=== PATIENT | male | born 1955 | race Caucasian/White ===

== ENCOUNTER → 2016-11-29 | Outpatient (CLI) | payer BC ==
[2016-11-29 11:23] LABS: ABSOLUTE EOSINOPHILS # (AUTO) 0.3 10^3/uL (0.0-0.6); ABSOLUTE MONOCYTES (AUTO) 0.4 10^3/uL (0.1-1.4); ABSOLUTE NEUT (AUTO) 3.3 10^3/uL (1.7-8.2); BASOPHILS % (AUTO) 0.7 % (0-2); EOSINOPHILS % (AUTO) 5.6 % (0-6); HEMATOCRIT 38.7 % (37.9-51.0); HEMOGLOBIN 12.5 g/dL (13.5-17.0); HGB HCT DIFFERENCE -1.2; LYMPHOCYTES % (AUTO) 20.1 % (13-45); MEAN CORPUSCULAR HEMOGLOBIN 24.4 pg (27.0-33.4); MEAN CORPUSCULAR HGB CONC 32.4 g/dL (32.0-36.0); MEAN CORPUSCULAR VOLUME 76 fl (80-97); MONOCYTES % (AUTO) 8.6 % (3-13); RED BLOOD COUNT 5.12 10^6/uL (4.35-5.55); RED CELL DISTRIBUTION WIDTH 17.7 % (11.5-14.0); WHITE BLOOD COUNT 5.1 10^3/uL (4.0-10.5)
== END ==
LOC: OD 10:42
PROVIDERS: ATTEND Internal Medicine
DX: J06.9 Acute upper respiratory infection, unspecified (principal); J32.9 Chronic sinusitis, unspecified
CPT/HCPCS: 36415; 71020; 85025

== ENCOUNTER → 2016-11-29 | Outpatient (CLI) | payer BC ==
[2016-11-29 10:06] LABS: ALANINE AMINOTRANSFERASE 71 U/L (21-72); ALKALINE PHOSPHATASE 74 U/L (38-126); ANION GAP 10 (5-19); ASPARTATE AMINO TRANSFERASE 45 U/L (17-59); BILIRUBIN,TOTAL 0.8 mg/dL (0.2-1.3); BLOOD UREA NITROGEN 16 mg/dL (7-20); CALCIUM 9.6 mg/dL (8.4-10.2); CARBON DIOXIDE 32 mmol/L (22-30); CHLORIDE 96 mmol/L (98-107); CHOLESTEROL 119.21 mg/dL (0-200); CREATININE RESULT 0.74 mg/dL (0.52-1.25); Direct HDL 43 mg/dL (>40); GLUCOSE 96 mg/dL (75-110); POTASSIUM 4.4 mmol/L (3.6-5.0); SODIUM 137.8 mmol/L (137-145); TOTAL PROTEIN 7.1 g/dL (6.3-8.2); TRIGLYCERIDES 131 mg/dL (<150)
[2016-11-29 10:17] LABS: DIRECT LDL 64 mg/dL (<100)
== END ==
LOC: OD 08:52
PROVIDERS: ATTEND Internal Medicine
DX: I48.2 Chronic atrial fibrillation (principal); E78.4 Other hyperlipidemia; I10 Essential (primary) hypertension; R01.1 Cardiac murmur, unspecified; M15.9 Polyosteoarthritis, unspecified; Z79.899 Other long term (current) drug therapy
CPT/HCPCS: 36415; 80053; 80061

== ENCOUNTER 2017-05-26 08:36 | Emergency (ER) | payer BC ==
[2017-05-26] MEDS ORDERED: NORMAL SALINE 1000 ML 1,000 ML IV ONE (08:59)
[2017-05-26 09:38] LABS: ABSOLUTE EOSINOPHILS # (AUTO) 0.3 10^3/uL (0.0-0.6); ABSOLUTE LYMPHOCYTES (AUTO) 1.1 10^3/uL (0.5-4.7); ABSOLUTE MONOCYTES (AUTO) 0.5 10^3/uL (0.1-1.4); ABSOLUTE NEUT (AUTO) 4.4 10^3/uL (1.7-8.2); BASOPHILS % (AUTO) 0.6 % (0-2); EOSINOPHILS % (AUTO) 4.7 % (0-6); HEMATOCRIT 41.5 % (37.9-51.0); HEMOGLOBIN 13.7 g/dL (13.5-17.0); HGB HCT DIFFERENCE -0.4; LYMPHOCYTES % (AUTO) 17.3 % (13-45); MEAN CORPUSCULAR HEMOGLOBIN 25.5 pg (27.0-33.4); MEAN CORPUSCULAR VOLUME 77 fl (80-97); MONOCYTES % (AUTO) 7.4 % (3-13); RED BLOOD COUNT 5.36 10^6/uL (4.35-5.55); RED CELL DISTRIBUTION WIDTH 19.7 % (11.5-14.0); WHITE BLOOD COUNT 6.3 10^3/uL (4.0-10.5)
[2017-05-26] MEDS ORDERED: KETOROLAC TROMETHAMINE INJ/PF 30 MG/1 ML SDV IV ONE (09:39)
[2017-05-26 09:48] LABS: APPEARANCE,URINE CLEAR; BILIRUBIN,URINE NEGATIVE (NEGATIVE); GLUCOSE, URINE NEGATIVE (NEGATIVE); KETONES,URINE NEGATIVE (NEGATIVE); LEUKOCYTE ESTERASE,URINE NEGATIVE (NEGATIVE); NITRITE,URINE NEGATIVE (NEGATIVE); PROTEIN,URINE NEGATIVE (NEGATIVE); URINE SPECIFIC GRAVITY 1.006; UROBILINOGEN,URINE NEGATIVE mg/dL (<2.0)
[2017-05-26 09:58] LABS: ALANINE AMINOTRANSFERASE 64 U/L (21-72); ALBUMIN 4.6 g/dL (3.5-5.0); ALKALINE PHOSPHATASE 65 U/L (38-126); ANION GAP 13 (5-19); ASPARTATE AMINO TRANSFERASE 51 U/L (17-59); BILIRUBIN,DIRECT 0.3 mg/dL (0.0-0.4); BILIRUBIN,TOTAL 1.1 mg/dL (0.2-1.3); BLOOD UREA NITROGEN 16 mg/dL (7-20); CALCIUM 9.5 mg/dL (8.4-10.2); CARBON DIOXIDE 28 mmol/L (22-30); CHLORIDE 95 mmol/L (98-107); CREATININE RESULT 0.71 mg/dL (0.52-1.25); GLUCOSE 98 mg/dL (75-110); POTASSIUM 4.1 mmol/L (3.6-5.0); SODIUM 136.4 mmol/L (137-145); TOTAL PROTEIN 7.7 g/dL (6.3-8.2)
--- NOTE | 2017-05-26 10:10 | RADIOLOGY REPORT (SQ) ---
EXAM DESCRIPTION: CHEST PA/LAT COMPLETED DATE/TIME: 05/26/2017 9:37 am REASON FOR STUDY: back, right side pain COMPARISON: CT chest 05/23/2012 Chest films 02/27/2008, 11/29/2016 EXAM PARAMETERS: NUMBER OF VIEWS: two views TECHNIQUE: Digital Frontal and Lateral radiographic views of the chest acquired. RADIATION DOSE: NA LIMITATIONS: none FINDINGS: LUNGS AND PLEURA: Benign pleural space fat is present similar compared to studies dating b ack to 2007. No acute infiltrates. No pleural effusion. No pneumothorax. MEDIASTINUM AND HILAR STRUCTURES: No masses or contour abnormalities. Benign calcified left hilar an d right hilar lymph nodes. HEART AND VASCULAR STRUCTURES: Heart normal size. No evidence for failure. BONES: No acute findings. HARDWARE: None in the chest. OTHER: No other significant finding. IMPRESSION: No acute findings TECHNICAL DOCUMENTATION: JOB ID: [id number] [employer]- All Rights Reserved
--- NOTE | 2017-05-26 10:16 | RADIOLOGY REPORT (SQ) ---
EXAM DESCRIPTION: CT LTD RENAL STONE PROTOCOL ON COMPLETED DATE/TIME: 05/26/2017 9:48 am REASON FOR STUDY: back, right side pain COMPARISON: Right upper quadrant ultrasound 07/06/2010 CT chest 05/23/2012 TECHNIQUE: CT scan of the abdomen and pelvis performed without intravenous or oral contrast. Images reviewed with lung, soft tissue, and bone windows. Reconstructed coronal and sagittal MPR images revi ewed. All images stored on PACS. All CT scanners at this facility use dose modulation, iterative reconstruction, and/or weight based d osing when appropriate to reduce radiation dose to as low as reasonably achievable (ALARA). [facility]: Dose Right [facility]: CareDose [facility]: Dose Right [facility]: Teradose 4D [facility]: [employer] RADIATION DOSE: Up-to-date CT equipment and radiation dose reduction techniques were employed. CTDIv ol: 26.4 mGy. DLP: 1404 mGy-cm.mGy. LIMITATIONS: None. FINDINGS: LOWER CHEST: Benign appearing noncalcified granulomas in the right lower lobe, unchanged f rom 2011. NON-CONTRASTED LIVER, SPLEEN, ADRENALS: Evaluation limited by lack of IV contrast. No identified sign ificant masses. Incidental finding of tiny subcentimeter cyst right lobe liver subdiaphragmatic surf cydney anteriorly, of doubtful significance PANCREAS: No masses. No peripancreatic inflammatory changes. GALLBLADDER: No identified stones by CT criteria. No inflammatory changes to suggest cholecystitis. RIGHT KIDNEY AND URETER: No suspicious masses. Assessment limited by lack of IV contrast. No signif icant calcifications. No hydronephrosis or hydroureter. LEFT KIDNEY AND URETER: No suspicious masses. Assessment limited by lack of IV contrast. No signifi cant calcifications. No hydronephrosis or hydroureter. AORTA AND RETROPERITONEUM: No aneurysm. No retroperitoneal masses or adenopathy. BOWEL AND PERITONEAL CAVITY: No obvious masses or inflammatory changes. No free fluid. APPENDIX: Normal. PELVIS, BLADDER, AND ABDOMINAL WALL:No abnormal masses. No free fluid. Bladder normal. Tiny fat cont aining umbilical hernia on sagittal image 62 and axial image 56 BONES: No significant findings. OTHER: No other significant finding. IMPRESSION: NO SIGNIFICANT OR ACUTE PROCESS IN THE ABDOMEN OR PELVIS. TECHNICAL DOCUMENTATION: JOB ID: [id number] Quality ID # [id number]: Final reports with documentation of one or more dose reduction techniques (e.g., Au tomated exposure control, adjustment of the mA and/or kV according to patient size, use of iterative reconstruction technique) 2010 [employer]- All Rights Reserved
--- NOTE | 2017-05-26 10:24 | ER Document Report ---
ED General - General Chief Complaint: Flank Pain Stated Complaint: RIGHT FLANK PAIN Time Seen by Provider: 05/26/17 08:58 Mode of Arrival: Ambulatory Information source: Patient Notes: 2 presents emergency department with complaints of right-sided back pain possible kidney stone. Patient reports that yesterday approximately 1500 he developed stabbing pain to the right side of his lower/mid back. Denies trauma , injury. Reports he did not do heavy lifting. He reports it hurt all night. He took one of his wifes percocet yesterday and it helped his pain but it kept him up all night. He reports it was an old prescription and none left. He took a tramadol at night and that did not help decrease the pain. He reports the pain increases when he moves certain ways. Denies shortness of breath chest pain. Area tender to palpate. Reports he had decreased urination for a while. Denies fever vomiting diarrhea. TRAVEL OUTSIDE OF THE [place] IN LAST 30 DAYS: No - HPI Onset: Yesterday Onset/Duration: Sudden, Persistent Severity: Severe Pain Level: 4 Associated symptoms: None Exacerbated by: Movement Relieved by: Denies Similar symptoms previously: No Recently seen / treated by doctor: No - Related Data Allergies/Adverse Reactions: No Known Allergies Allergy (Verified 05/26/17 09:55) Home Medications: Current Home Medications Apixaban [Eliquis] 5 mg PO BID 05/26/17 [History] Diltiazem HCl [Cartia Xt] 240 mg PO DAILY 05/26/17 [History] Hydrochlorothiazide [Hydrochlorothiazide] 50 mg PO DAILY 05/26/17 [History] Losartan Potassium [Losartan Potassium] 50 mg PO DAILY 05/26/17 [History] Omeprazole [Omeprazole] 40 mg PO DAILY 05/26/17 [History] Simvastatin [Simvastatin] 20 mg PO DAILY 05/26/17 [History] Tamsulosin HCl [Flomax] 0.4 mg PO DAILY 05/26/17 [History] Tramadol HCl/Acetaminophen [Tramadol-Acetaminophn 37.5-325] 1 each PO TID [History] Zolpidem Tartrate 10 mg PO QHS 05/26/17 [History] Past Medical History - General Information source: Patient - Social History Smoking Status: Never Smoker Chew tobacco use (# tins/day): No Frequency of alcohol use: None Drug Abuse: None Lives with: Family Family History: CAD - father Patient has suicidal ideation: No Patient has homicidal ideation: No - Past Medical History Cardiac Medical History: Reports: Hx Atrial Fibrillation, Hx Hypercholesterolemia, Hx Hypertension Renal/ Medical History: Denies: Hx Peritoneal Dialysis Surgical Hx: Negative - Immunizations Hx Diphtheria, Pertussis, Tetanus Vaccination: No Review of Systems - Review of Systems Notes: Review HPI for review of systems., All other systems negative Physical Exam - Vital signs Vitals: Temp Pulse Resp BP Pulse Ox 98.5 F 79 20 153/82 H 97 05/26/17 08:46 05/26/17 08:46 05/26/17 08:46 05/26/17 08:46 05/26/17 08:46 - Notes Notes: PHYSICAL EXAMINATION: GENERAL: Well-appearing and in no acute distress HEAD: Atraumatic, normocephalic. EYES: Pupils equal round extraocular movements intact, sclera anicteric, conjunctiva are normal. ENT: nares patent, oropharynx clear without exudates. Moist mucous membranes. NECK: Normal range of motion, supple without lymphadenopathy LUNGS: CTAB and equal. No wheezes rales or rhonchi. HEART: Regular rate and rhythm without murmurs Back: no erythema/warmth/swelling, good distal movement and sensation, reports slightly ttp on right mid back ABDOMEN: Soft, no tenderness. No guarding, no rebound EXTREMITIES: Normal range of motion, no pitting edema. No cyanosis. NEUROLOGICAL: Cranial nerves grossly intact. PSYCH: Normal mood, normal affect. SKIN: Warm, Dry, normal turgor, no open wounds Course - Re-evaluation Re-evalutation: 05/26/17 10:49 Labs unremarkable no hematuria Reports pain gone. Patient instructed on all labs CT and chest x-ray. He was instructed to return for any worsening pain trouble breathing. He was also instructed to follow-up with Leonor Rendon MD on Sunday. Patient requesting pain medication until he can see his provider. - Vital Signs Vital signs: Temp Pulse Resp BP Pulse Ox 98 F 62 16 127/75 H 96 05/26/17 10:40 05/26/17 10:40 05/26/17 10:40 05/26/17 10:40 05/26/17 10:40 - Laboratory Result Diagrams: 05/26/17 09:10 05/26/17 09:10 Laboratory results interpreted by me: 05/26/17 05/26/17 09:10 09:10 MCV 77 L MCH 25.5 L RDW 19.7 H Sodium 136.4 L Chloride 95 L - Diagnostic Test Radiology reviewed: Image reviewed, Reports reviewed - Negative CT and chest x- ray Discharge - Discharge Clinical Impression: Right-sided back pain Qualifiers: Back pain location: low back pain Chronicity: acute Sciatica presence: without sciatica Qualified Code(s): M54.5 - Low back pain Condition: Stable Disposition: HOME, SELF-CARE Instructions: Low Back Pain ([facility]), Toradol Injection ([facility]), Oral Narcotic Medication ([facility]) Additional Instructions: *You have been evaluated for right sided back pain *Take your pain medication as prescribed *Rest/Ice- heat as directed *Follow up with Dr Peraza on Sunday *Return to ED for worsening condition, changes, needs, increased pain, difficulty breathing Prescriptions: Oxycodone HCl/Acetaminophen [Percocet 5-325 mg Tablet] 1 tab PO ASDIR PRN #5 tablet PRN Reason: Referrals: LEONOR RENDON MD [Primary Care Provider] - Follow up in 3-5 days
[2017-05-26 10:41] VITALS: BP 127/75
== END 2017-05-26 10:55 | disposition home or self-care (01) ==
LOC: ER 08:36
DX: M54.5 Low back pain (principal); R10.9 Unspecified abdominal pain; M54.9 Dorsalgia, unspecified; R33.9 Retention of urine, unspecified; Z79.899 Other long term (current) drug therapy; X50.0XXA Overexertion from strenuous movement or load, initial encounter
CPT/HCPCS: 99284; 96374; 36415; 85025; 80053; 81001; 71020; 76380; J1885

== ENCOUNTER 2018-04-25 07:07 | Day surgery (SDC) | payer BC ==
[~2018-04-25 07:07] MED LIST: KETOROLAC TROMETHAMINE 0.45% 4 DROP/0.4 ML DROPERETTE OS PRN
[2018-04-25] MEDS ORDERED: MIDAZOLAM 2 MG/2 ML INJ ONE ×2 (07:14→08:29)
[2018-04-25] MEDS ORDERED: EPINEPHRINE INJ/PF 1 MG/1 ML AMPULE ONE (07:42)
[2018-04-25] MEDS ORDERED: CHONDR SU A NA/HYALUR INTRAOC KIT (SURGICARE) ONE (07:42)
[2018-04-25] MEDS ORDERED: LIDOCAINE 1% INJ-PF (10 MG/ML) 30 ML SDV ONE (07:42)
[2018-04-25] MEDS: CYCLOPENTOLATE 0.2%/PHENYLEPHRINE 1% OPH SOLN 2 ML OS PRN ×3 (07:47→08:03)
[2018-04-25] MEDS: TETRACAINE HCL 0.5% OPH SOLN 2 ML OS PRN ×3 (07:47→08:24)
[2018-04-25] MEDS: TROPICAMIDE 1% OPH SOLN 3 ML OS PRN ×3 (07:47→08:03)
[2018-04-25] MEDS: BESIFLOXACIN HCL 0.6% OPH SUSP 5 ML BOTTLE OS PRN ×4 (07:47→08:49)
[2018-04-25] MEDS ORDERED: LIDOCAINE 1%/PHENYLEPHRINE 1.5% 1 ML VIAL ONE (07:55)
[2018-04-25] MEDS ORDERED: TRYPAN BLUE 0.06 % OPH SOLN 0.5 ML DISP.SYRIN ONE (07:57)
--- NOTE | 2018-04-25 16:30 | [facility] OPERATIVE REPORT E ---
[facility] Operative Report NAME: LEONEL SCHULTZ AGE: 62Y DATE OF SURGERY: 04/25/2018 ROOM: PREOPERATIVE DIAGNOSES: 1. CATARACT LEFT EYE. 2. PUPIL MIOSIS, LEFT EYE. POSTOPERATIVE DIAGNOSES: 1. CATARACT LEFT EYE. 2. PUPIL MIOSIS, LEFT EYE. OPERATION: Complex cataract extraction with the use of a Malyugin ring due to poor pupillary dilation. SURGEON: GUANAKO GOLDMAN M.D. ANESTHESIA: TOPICAL. COMPLICATIONS: None. ESTIMATED BLOOD LOSS: None. PROCEDURE: After obtaining appropriate consent, the patient left eye was prepped and draped in sterile fashion as well as the surgeon in a sterile manner, and the cataract surgery was started. First, the paracentesis blade was used to make a small side-port incision. Viscoelastic was used to inflate the anterior chamber. Next a 2.4 mm incision was made using a 2.4 mm keratome. At this point, the pupil was less than 4.5 mm and was very miotic. A Malyugin ring was inserted due to a pupillary dilation of 3.0 mm or myosis. Following this, a continuous capsulorhexis was made using a cystitome and Utrata forceps. Following this, hydrodissection was carried out to make the lens fully loose and mobile, and it was rotated 90 degrees. Following this, a divide and conquer technique was used to phacoemulsify the lens with a CDE of approximately 5.99. The remaining cortex was removed with irrigation/aspiration. Provisc was instilled into the capsular bag to inflate the bag. A SN60WF lens of 22.5 diopters was placed. The remaining viscoelastic material was removed with irrigation/aspiration. After this the Malyugin ring was removed. Following this, the incision was found to be watertight. Besivance was instilled into the eye and a protective shield was placed over the eye. The patient returned to the postoperative recovery in stable condition. This was a complex case due to the fact that the Malyugin ring was used due to poor pupillary dilation of less than or equal to 4 mm. DICTATING PHYSICIAN: GUANAKO GOLDMAN M.D. [id number] PHY#: [id number] ID: [id number] JOB#: [id number] ACCT: [id number] cc:GUANAKO GOLDMAN M.D. >
--- NOTE | 2018-04-25 16:37 | [facility] DISCHARGE SUMMARY E ---
[facility] Discharge Summary NAME: LEONEL SCHULTZ AGE: 62Y ADMITTED: 04/25/2018 DISCHARGED: HOSPITAL COURSE: This is a 62-year-old male for complex cataract extraction with Malyugin ring. DIAGNOSIS: 1. CATARACT left EYE. 2. PUPIL MYOSIS 3.5 mm. The patient underwent surgery because he had trouble seeing road signs and increasing glare from headlights. DISCHARGE INSTRUCTIONS: He should be on a regular diet. No bending at the waist, no heavy lifting. He should use his Besivance, Ilevro, and Durezol at 3:00 p.m. and 8:00 p.m. and sleep with a rigid shield. I will see him for 1-day postoperative tomorrow. DICTATING PHYSICIAN: GUANAKO GOLDMAN M.D. [id number] PHY#: [id number] ID: [id number] JOB#: [id number] ACCT: [id number] cc:GUANAKO GOLDMAN M.D. > MTDD
== END 2018-04-25 09:30 | disposition home or self-care (01) ==
LOC: SC 07:07
PROVIDERS: ATTEND Internal Medicine
DX: H57.03 Miosis (principal); H25.13 Age-related nuclear cataract, bilateral; I49.9 Cardiac arrhythmia, unspecified; I10 Essential (primary) hypertension; K21.9 Gastro-esophageal reflux disease without esophagitis; E66.9 Obesity, unspecified; Z68.39 Body mass index [BMI] 39.0-39.9, adult; Z79.01 Long term (current) use of anticoagulants
CPT/HCPCS: 66982; V2632; J2250; J3490; J0171; J2370; 142

== ENCOUNTER → 2018-07-25 | Outpatient (CLI) | payer BC ==
[2018-07-25 10:06] LABS: ABSOLUTE EOSINOPHILS # (AUTO) 0.2 10^3/uL (0.0-0.6); ABSOLUTE LYMPHOCYTES (AUTO) 0.7 10^3/uL (0.5-4.7); ABSOLUTE MONOCYTES (AUTO) 0.4 10^3/uL (0.1-1.4); ABSOLUTE NEUT (AUTO) 3.4 10^3/uL (1.7-8.2); BASOPHILS % (AUTO) 0.6 % (0-2); EOSINOPHILS % (AUTO) 4.1 % (0-6); HEMOGLOBIN 11.6 g/dL (13.5-17.0); LYMPHOCYTES % (AUTO) 15.5 % (13-45); MEAN CORPUSCULAR HEMOGLOBIN 22.8 pg (27.0-33.4); MEAN CORPUSCULAR HGB CONC 32.3 g/dL (32.0-36.0); MEAN CORPUSCULAR VOLUME 70 fl (80-97); MONOCYTES % (AUTO) 9.2 % (3-13); PLATELET COUNT 250 10^3/uL (150-450); RED BLOOD COUNT 5.12 10^6/uL (4.35-5.55); RED CELL DISTRIBUTION WIDTH 20.4 % (11.5-14.0); SEGMENTED NEUTROPHILS % (AUTO) 70.6 % (42-78); TOTAL CELLS COUNTED % (AUTO) 100 %; WHITE BLOOD COUNT 4.8 10^3/uL (4.0-10.5)
[2018-07-25 10:28] LABS: ALANINE AMINOTRANSFERASE 49 U/L (21-72); ALKALINE PHOSPHATASE 64 U/L (38-126); ANION GAP 11 (5-19); ASPARTATE AMINO TRANSFERASE 30 U/L (17-59); BILIRUBIN,DIRECT 0.2 mg/dL (0.0-0.4); BILIRUBIN,TOTAL 0.8 mg/dL (0.2-1.3); BLOOD UREA NITROGEN 9 mg/dL (7-20); CALCIUM 9.3 mg/dL (8.4-10.2); CARBON DIOXIDE 30 mmol/L (22-30); CHLORIDE 93 mmol/L (98-107); CHOLESTEROL 118.48 mg/dL (0-200); GLUCOSE 94 mg/dL (75-110); POTASSIUM 4.2 mmol/L (3.6-5.0); SODIUM 133.6 mmol/L (137-145); TOTAL PROTEIN 6.6 g/dL (6.3-8.2); TRIGLYCERIDES 132 mg/dL (<150)
[2018-07-25 10:38] LABS: DIRECT LDL 54 mg/dL (<100)
== END ==
LOC: OD 09:05
PROVIDERS: ATTEND Internal Medicine
DX: I48.0 Paroxysmal atrial fibrillation (principal); J44.9 Chronic obstructive pulmonary disease, unspecified; I10 Essential (primary) hypertension; E78.5 Hyperlipidemia, unspecified; G47.33 Obstructive sleep apnea (adult) (pediatric); R35.1 Nocturia; R53.83 Other fatigue
CPT/HCPCS: 36415; 80053; 80061; 84153; 84443; 85025

== ENCOUNTER → 2019-01-31 | Outpatient (CLI) | payer BC | LOC: OD 13:18 | PROVIDERS: ATTEND Physician Assistant | DX: R60.0 Localized edema (principal); R06.02 Shortness of breath | CPT/HCPCS: 36415; 83880 ==

== ENCOUNTER → 2019-02-12 | Outpatient (CLI) | payer BC ==
[~2019-02-12] MED LIST changes: -KETOROLAC TROMETHAMINE 0.45% 4 DROP/0.4 ML DROPERETTE OS PRN; +REGADENOSON INJ 0.4 MG/5 ML DISP.SYRIN IV ONE
--- NOTE | 2019-02-12 08:40 | RADIOLOGY REPORT (SQ) ---
EXAM DESCRIPTION: CHEST 2 VIEWS COMPLETED DATE/TIME: 02/12/2019 8:24 am REASON FOR STUDY: SOB (R06.02), COUGH (R05) COMPARISON: 05/26/2017 EXAM PARAMETERS: NUMBER OF VIEWS: two views TECHNIQUE: Digital Frontal and Lateral radiographic views of the chest acquired. RADIATION DOSE: NA LIMITATIONS: none FINDINGS: LUNGS AND PLEURA: Minimal chronic linear density left base. Lungs otherwise clear. MEDIASTINUM AND HILAR STRUCTURES: No masses or contour abnormalities. HEART AND VASCULAR STRUCTURES: Borderline cardiomegaly BONES: No acute findings. HARDWARE: None in the chest. OTHER: No other significant finding. IMPRESSION: NO ACUTE RADIOGRAPHIC FINDING IN THE CHEST. TECHNICAL DOCUMENTATION: JOB ID: [id number] [employer]- All Rights Reserved Reading location - IP/workstation name: [email or web address]
[2019-02-12 08:56] LABS: ABSOLUTE EOSINOPHILS # (AUTO) 0.1 10^3/uL (0.0-0.6); ABSOLUTE MONOCYTES (AUTO) 0.5 10^3/uL (0.1-1.4); ABSOLUTE NEUT (AUTO) 4.4 10^3/uL (1.7-8.2); BASOPHILS % (AUTO) 0.5 % (0-2); EOSINOPHILS % (AUTO) 1.2 % (0-6); HEMATOCRIT 34.8 % (37.9-51.0); LYMPHOCYTES % (AUTO) 16.4 % (13-45); MEAN CORPUSCULAR HEMOGLOBIN 22.7 pg (27.0-33.4); MEAN CORPUSCULAR HGB CONC 31.5 g/dL (32.0-36.0); MEAN CORPUSCULAR VOLUME 72 fl (80-97); MONOCYTES % (AUTO) 7.8 % (3-13); PLATELET COUNT 247 10^3/uL (150-450); RED BLOOD COUNT 4.84 10^6/uL (4.35-5.55); RED CELL DISTRIBUTION WIDTH 21.5 % (11.5-14.0); SEGMENTED NEUTROPHILS % (AUTO) 74.1 % (42-78); TOTAL CELLS COUNTED % (AUTO) 100 %; WHITE BLOOD COUNT 5.9 10^3/uL (4.0-10.5)
[2019-02-12 09:21] LABS: ALANINE AMINOTRANSFERASE 51 U/L (21-72); ALBUMIN 3.6 g/dL (3.5-5.0); ALKALINE PHOSPHATASE 73 U/L (38-126); ANION GAP 5 (5-19); ASPARTATE AMINO TRANSFERASE 29 U/L (17-59); BILIRUBIN,DIRECT 0.2 mg/dL (0.0-0.4); BILIRUBIN,TOTAL 0.6 mg/dL (0.2-1.3); BLOOD UREA NITROGEN 19 mg/dL (7-20); CALCIUM 9.2 mg/dL (8.4-10.2); CARBON DIOXIDE 30 mmol/L (22-30); CHLORIDE 101 mmol/L (98-107); CHOLESTEROL 135.86 mg/dL (0-200); GLUCOSE 98 mg/dL (75-110); SODIUM 135.9 mmol/L (137-145); TOTAL PROTEIN 6.2 g/dL (6.3-8.2); TRIGLYCERIDES 169 mg/dL (<150)
[2019-02-12 09:32] LABS: DIRECT LDL 79 mg/dL (<100)
[2019-02-12 09:36] LABS: VLDL CHOLESTEROL 33.8 mg/dL (10-31)
--- NOTE | 2019-02-13 22:50 | DRAGON STRESS TEST REPORT ---
Intravenous Lexiscan Cardiolite stress test using single photon emmision computerized tomography. Date of procedure: 02/12/2019.Ordering Provider: Dr. Kishan Massey.. Patient's status:Out Patient. Indication: Dyspnea on exertion. Coronary risk factors: Age, and hypertension. Resting EKG: Sinus Rhythm. LVH with strain pattern Stress EKG: No changes of ischemia. The patient has no chest pain or discomfort, and there was no arrhythmias seen. Reason for termination: Protocol. Conclusions: Normal EKG and hemodynamic response to IV Lexiscan. Nuclear data: At rest the patient was given 15.24 millicuries of technetium 99m sestamibi injected intravenously. As per protocol rest non gated SPECT images were obtained. Subsequently the patient was given intravenous Lexiscan at a dose of 0.4 mg in 5 mL intravenously, followed by flush with normal saline. Subsequently the stress dose of 47.3 millicuries of technetium 99m sestamibi was injected intravenously. As per protocol stress gated images were obtained. Nuclear interpretation: Review of images showed that there was bowel contamination artifact of the inferior wall. Difficult study to interpret. Probably there is a perfusion defect in the stress images which normalizes in the rest images. This area has normal motion contraction and thickening by gated. The rest of the segments of the myocardium had normal perfusion at rest, and normal perfusion post stress with IV Lexiscan. All segments of the myocardium had normal motion, contraction, and thickening by gated study. T. I D. ratio was normal at 1.13. There is no transient ischemic dilatation of the left ventricle. Computer read rest, and stress left ventricular ejection fraction were 44 %, and 87 %, respectively. Visually both the stress and rest ejection fractions were normal, and greater than 55%. Conclusion: 1. There is probably mild to moderate scintigraphic evidence of Lexiscan induced myocardial ischemia. 2. There is no scintigraphic evidence of myocardial infarction/scar. Recommendations: 1. Cardiac catheterization to assess significance of coronary artery disease. 2. Check echo for LV ejection fraction correlation. 3. Aggressive risk factor modification, and treating the underlying co- morbidities. [facility]
== END ==
LOC: RAD 07:56
PROVIDERS: ATTEND Internal Medicine
DX: R06.02 Shortness of breath (principal); R05 Cough; E78.5 Hyperlipidemia, unspecified; I10 Essential (primary) hypertension; R73.9 Hyperglycemia, unspecified; I48.91 Unspecified atrial fibrillation; R53.83 Other fatigue; Z79.899 Other long term (current) drug therapy
CPT/HCPCS: 36415; 83735; 84443; 85025; 80053; 83036; 80061; 93017; 71046; 78452; A9500; J2785; Q9969

== ENCOUNTER 2019-02-25 07:55 | Day surgery (SDC) | payer BC ==
[~2019-02-25 07:55] MED LIST changes: +ASPIRIN 325 MG TABLET PO PRN; +DIAZEPAM 5 MG TABLET PO PRN; +DIPHENHYDRAMINE HCL 25 MG CAPSULE PO PRN; +RADIAL COCKTAIL SYRINGE 10 ML IV PRN; -REGADENOSON INJ 0.4 MG/5 ML DISP.SYRIN IV ONE
[2019-02-25] MEDS ORDERED: MIDAZOLAM 2 MG/2 ML INJ ONE (09:14)
[2019-02-25] MEDS ORDERED: FENTANYL CITRATE INJ/PF 100 MCG/2 ML AMPUL ONE (09:14)
[2019-02-25] MEDS ORDERED: HEPARIN SOD (PORCINE) 1,000 UNIT/ML 10 ML VIAL ONE (09:14)
[2019-02-25] MEDS ORDERED: LIDOCAINE 1% INJ-PF (10 MG/ML) 30 ML SDV ONE (09:15)
[2019-02-25] MEDS ORDERED: HEPARIN SODIUM,PORCINE/NS/PF 2,000 UNIT/1,000 ML RTUINJ IV ONE (09:16)
[2019-02-25] MEDS ORDERED: NORMAL SALINE 1000 ML 1,000 ML IV PRN (10:14)
--- NOTE | 2019-02-25 10:20 | Operative Report ---
Operative Report DATE OF SURGERY: 02/25/19 PREOPERATIVE DIAGNOSIS: Abnormal stress test chest pain syndrome POSTOPERATIVE DIAGNOSIS: Hypertrophic cardiomyopathy spade variant OPERATION: Left heart catheterization coronary angiography left ventriculography SURGEON: DMITRI MCFADDEN ANESTHESIA: Moderate Sedation COMPLICATIONS: None PROCEDURE: After informed consent was obtained the patient was brought to the cardiac catheterization lab and the right wrist was prepared in usual sterile and draped manner. Hemodynamic access was gained using micropuncture technique and the patient was anticoagulated with heparin. An intra-arterial cocktail of verapamil and lidocaine was administered. Selective coronary angiography was performed with a [place] catheter. This was exchanged with pigtail catheter and left ventriculography was performed in standard RICE projection. The patient left the Cardiac Catheterization Lab in stable condition, with intact distal pulses and no chest pain or other complications from the procedure. Conscious sedation was initiated, monitored, and maintained during the procedure with the start time of [941] and a completion time of 1002 for a total procedure time of 21 minutes. A total of 1 mg milligrams of Versed and 75 mcg fentanyl were used for conscious sedation. HEMODYNAMIC DATA: Aortic pressure at the beginning the case is 125/72 post ventriculography LV pressure is 148/20 4 aortic pressure is 151/82 on pullback there is no gradient across the aortic valve and no LVOT gradient CORONARY ANATOMY: [] ANGIOGRAPHY: [] VENTRICULOGRAPHY: Ventriculography is performed in the RICE projection and demonstrates [a speed configuration ventricle with apical hypertrophy consistent with an apical hypertrophic cardiomyopathy variant regional wall motion is normal ejection fraction is calculated at 83% by area length method] . CORONARY ANGIOGRAPHY: [] LEFT MAIN: [Normal] LEFT ANTERIOR DESCENDING: [A transapical LAD with diagonal vessels that are widely patent there are minor luminal irregularities but no critical or focal obstructions] CIRCUMFLEX CORONARY: [Supplies the lateral wall this artery is also normally epicardial extent] RIGHT CORONARY ARTERY: Dominant supplying the PDA and posterolateral branches this is also normal IMPRESSION: [ 1. Hypertrophic cardiomyopathy with apical variant 2. Essentially normal epicardial coronary arteries 3. Elevated left ventricular end-diastolic pressure 4. No evidence of significant valvular heart disease Discussion: Recommendations at this time or for significant weight loss compliance with CPAP and continued medical therapy]
[2019-02-25 14:12] VITALS: BP 135/91
== END 2019-02-25 13:25 | disposition home or self-care (01) ==
LOC: CCL 07:55
PROVIDERS: ATTEND Internal Medicine Cardiovascular Disease
DX: I42.2 Other hypertrophic cardiomyopathy (principal); R07.9 Chest pain, unspecified; R06.00 Dyspnea, unspecified; I10 Essential (primary) hypertension; E78.5 Hyperlipidemia, unspecified
CPT/HCPCS: 93458; J2250; J3010; J1644 ×2; J3490 ×4

== ENCOUNTER → 2019-05-21 | Outpatient (CLI) | payer BC ==
[2019-05-21 10:01] LABS: ABSOLUTE EOSINOPHILS # (AUTO) 0.1 10^3/uL (0.0-0.6); ABSOLUTE LYMPHOCYTES (AUTO) 1.2 10^3/uL (0.5-4.7); ABSOLUTE MONOCYTES (AUTO) 0.5 10^3/uL (0.1-1.4); ABSOLUTE NEUT (AUTO) 4.2 10^3/uL (1.7-8.2); BASOPHILS % (AUTO) 0.5 % (0-2); EOSINOPHILS % (AUTO) 1.8 % (0-6); HEMATOCRIT 34.5 % (37.9-51.0); HEMOGLOBIN 10.6 g/dL (13.5-17.0); LYMPHOCYTES % (AUTO) 19.9 % (13-45); MEAN CORPUSCULAR HEMOGLOBIN 21.2 pg (27.0-33.4); MEAN CORPUSCULAR HGB CONC 30.9 g/dL (32.0-36.0); MEAN CORPUSCULAR VOLUME 69 fl (80-97); MONOCYTES % (AUTO) 8.2 % (3-13); PLATELET COUNT 246 10^3/uL (150-450); RED BLOOD COUNT 5.03 10^6/uL (4.35-5.55); RED CELL DISTRIBUTION WIDTH 19.2 % (11.5-14.0); SEGMENTED NEUTROPHILS % (AUTO) 69.6 % (42-78); TOTAL CELLS COUNTED % (AUTO) 100 %
[2019-05-21 10:22] LABS: ALANINE AMINOTRANSFERASE 57 U/L (21-72); ALBUMIN 3.9 g/dL (3.5-5.0); ALKALINE PHOSPHATASE 71 U/L (38-126); ANION GAP 7 (5-19); ASPARTATE AMINO TRANSFERASE 33 U/L (17-59); BILIRUBIN,DIRECT 0.2 mg/dL (0.0-0.4); BILIRUBIN,TOTAL 0.6 mg/dL (0.2-1.3); BLOOD UREA NITROGEN 14 mg/dL (7-20); CALCIUM 8.8 mg/dL (8.4-10.2); CARBON DIOXIDE 32 mmol/L (22-30); CHLORIDE 99 mmol/L (98-107); GLUCOSE 112 mg/dL (75-110); POTASSIUM 3.6 mmol/L (3.6-5.0); TOTAL PROTEIN 6.3 g/dL (6.3-8.2)
[2019-05-21 10:29] LABS: C-REACTIVE PROTEIN < 5.0 mg/L (<10.0)
[2019-05-21 10:36] LABS: ERYTHROCYTE SEDIMENTATION RATE 7 mm/hr (0-20)
== END ==
LOC: WC 09:23
PROVIDERS: ATTEND Nurse Practitioner Family
DX: L97.222 Non-pressure chronic ulcer of left calf with fat layer exposed (principal)
CPT/HCPCS: 11042; 36415; 80053; 85025; 85652; 86140; 99214

== ENCOUNTER → 2019-05-27 | Outpatient (CLI) | payer BC ==
--- NOTE | 2019-05-28 08:59 | XCELERA REPORT ---
[address] [address] Lower Extremity Arterial Evaluation Name: LEONEL SCHULTZ Age: 64 yrs Gender: Male : 1955 Patient Status: Outpatient Patient Location: Study Date: 05/27/2019 01:19 PM Procedure: A color flow and duplex scan of the lower extremity arteries was performed bilaterally with velocity and waveform anaylsis. Ankle brachial indicies performed. Reason For Study: LT CALF ULCER Ordering Physician: BULMARO FUNK Performed By: Edouard Villarreal Measurements and Calculations Right Left SEM MANAGER PSV 198.6 144.4 cm/sec Prox PFA PSV -145.8 -193.6cm/sec Prox SFA PSV 143.2 186.3 cm/sec Mid SFA PSV -160.6 -188.6cm/sec Dist SFA PSV -109.1 -89.3 cm/sec Prox Pop A PSV 103.4 113.1 cm/sec Mid ELIAN PSV 64.2 cm/sec Dist ELIAN PSV 98.7 cm/sec Mid SEED CLEANER PSV 93.7 cm/sec Dist SEED CLEANER PSV 125.0 131.3 cm/sec Eloy Pedis PSV 171.1 100.2 cm/sec Right Side Arterial Evaluation Normal velocity and triphasic waveforms noted from the Common Femoral artery to the infrageniculate vessels . Ankle Brachial index 1.08. Left Side Arterial Evaluation Normal velocity and triphasic waveforms noted from the Common Femoral artery to the infrageniculate vessels . Ankle Brachial index 1.15. Interpretation Summary No hemodynamically significant lesions in the bilateral lower extremities, on duplex imaging, at rest. Duplex completely normal. RAIMUNDO's are normal supporting duplex findings. : BULMARO FUNK > Corey Dee
--- NOTE | 2019-05-29 12:17 | XCELERA REPORT ---
[address] [address] Lower Extremity Venous Evaluation Procedure: A bilateral duplex scan of the lower extremity veins was performed. The evaluation included responses to compression and other maneuvers with patient in the supine and standing positions to assess venous insufficiency. Right Sided Venous Evaluation Deep venous system evaluation shows patent veins with no obstruction ,1 second reflux identified in the mid Femoral vein only. Saphena Femoral junction: no reflux. Femoral vein reflux: no reflux. Greater Saphenous vein, Proximal thigh: reflux: no reflux. Greater Saphenous vein, Distal thigh: reflux: no reflux. Greater Saphenous vein, Proximal below knee: reflux: 2 second reflux. 4.8 mm diameter. Greater Saphenous vein, Mid below knee: reflux: no reflux. No significant Perforators identified. Left Sided Venous Evaluation Deep venous system evaluation shows patent veins with no obstruction ,2 second reflux identified in the mid Femoral vein , 1.5 second reflux in the Politeal vein.. Saphena Femoral junction: no reflux. Femoral vein reflux: no reflux. Greater Saphenous vein, Proximal thigh: reflux: no reflux. Greater Saphenous vein, Distal thigh: reflux: no reflux. Greater Saphenous vein, Proximal below knee: reflux: no reflux. Greater Saphenous vein, Mid below knee: reflux: no reflux. No significant Perforators identified. Interpretation Summary No duplex evidence of DVT or obstruction in the bilateral lower extremities. Limited areas of deep and superficial reflux noted on the right, deep reflux on the left. Name: LEONEL SCHULTZ Age: 64 yrs Gender: Male : 1955 Patient Status: Outpatient Patient Location: Study Date: 05/27/2019 01:44 PM Reason For Study: LT CALF ULCER Ordering Physician: BULMARO FUNK Performed By: Edouard Villarreal : BULMARO FUNK > Corey Dee
== END ==
LOC: SP 12:42
PROVIDERS: ATTEND Nurse Practitioner Family
DX: L97.222 Non-pressure chronic ulcer of left calf with fat layer exposed (principal)
CPT/HCPCS: 93922; 93925; 93970

== ENCOUNTER 2019-06-15 08:30 | Inpatient (IN) | payer MEDICARE, BC ==
[2019-06-15 08:55] LABS: APPEARANCE,URINE CLEAR; BILIRUBIN,URINE NEGATIVE (NEGATIVE); COLOR,URINE YELLOW; GLUCOSE, URINE NEGATIVE (NEGATIVE); KETONES,URINE NEGATIVE (NEGATIVE); LEUKOCYTE ESTERASE,URINE NEGATIVE (NEGATIVE); NITRITE,URINE NEGATIVE (NEGATIVE); PROTEIN,URINE NEGATIVE (NEGATIVE); URINE SPECIFIC GRAVITY 1.008; UROBILINOGEN,URINE NEGATIVE mg/dL (<2.0)
--- NOTE | 2019-06-15 11:11 | ER Document Report ---
ED Medical Screen (RME) - General Chief Complaint: Dizziness Stated Complaint: DIZZY/LEFT ARM NUMBNESS Time Seen by Provider: 06/15/19 11:05 Primary Care Provider: LEONOR RENDON MD [Primary Care Provider] - Follow up as needed Mode of Arrival: Ambulatory Information source: Patient Notes: 64 yo male present to ed for numbness to left wrist and hand. when has bm or urinated feels like he is going to pass out and has to stop. 2 weeks ago had diarrhea for 3 days went md and got the diarrhea stopped, week latter he went back to md and had gained 14 pound and was started on water pills. he has lost 13 of the pound in the last week. Patient is alert oriented respirations regular and unlabored speaking in full sentences walks with even steady gait. I have greeted and performed a rapid initial assessment of this patient. A comprehensive ED assessment and evaluation of the patient, analysis of test results and completion of medical decision making process will be conducted by an additional ED providers. TRAVEL OUTSIDE OF THE [place] IN LAST 30 DAYS: No - Related Data Allergies/Adverse Reactions: No Known Allergies Allergy (Verified 02/25/19 08:10) Past Medical History - General Information source: Patient - Social History Cigarette use (# per day): No - former Frequency of alcohol use: None Drug Abuse: None - Past Medical History Cardiac Medical History: Reports: Hx Atrial Fibrillation, Hx Coronary Artery Disease, Hx Hypercholesterolemia, Hx Hypertension - MEDICATED Pulmonary Medical History: Reports: Hx COPD EENT Medical History: Reports: None Renal/ Medical History: Denies: Hx Peritoneal Dialysis GI Medical History: Reports: Hx Colonoscopy, Hx Endoscopy. Denies: Hx He patitis, Hx Hiatal Hernia, Hx Ulcer Musculoskeltal Medical History: Reports Hx Arthritis Infectious Medical History: Denies: Hx Hepatitis Past Surgical History: Reports: Hx Cardiac Catheterization, Hx Coronary Stent - Immunizations Hx Diphtheria, Pertussis, Tetanus Vaccination: No History of Influenza Vaccine for 07/2017 - 12/2017 Season: Yes Influenza Administration Date for 07/2017 - 12/2017 Season: 07/22/19 Physical Exam - Vital signs Vitals: Temp Pulse Resp BP Pulse Ox 97.6 F 71 24 H 175/92 H 100 06/15/19 08:36 06/15/19 08:36 06/15/19 08:36 06/15/19 08:36 06/15/19 08:36 Course - Vital Signs Vital signs: Temp Pulse Resp BP Pulse Ox 97.6 F 66 18 175/92 H 91 L 06/15/19 08:36 06/15/19 11:55 06/15/19 11:17 06/15/19 08:36 06/15/19 11:17 - Laboratory Result Diagrams: 06/15/19 11:29 06/15/19 11:29 Laboratory results interpreted by me: 06/15/19 06/15/19 06/15/19 11:29 11:29 11:29 Hgb 11.7 L Hct 36.2 L MCV 66 L MCH 21.2 L RDW 20.3 H Lymph % (Auto) 9.6 L Seg Neutrophils % 78.3 H PT 15.7 H Sodium 124.8 L Potassium 3.5 L Chloride 81 L Carbon Dioxide 31 H Glucose 113 H POC Glucose AST 67 H Creatine Kinase 176 H 06/15/19 11:49 Hgb Hct MCV MCH RDW Lymph % (Auto) Seg Neutrophils % PT Sodium Potassium Chloride Carbon Dioxide Glucose POC Glucose 125 H AST Creatine Kinase Doctor's Discharge - Discharge Referrals: LEONOR RENDON MD [Primary Care Provider] - Follow up as needed
[2019-06-15 11:39] LABS: ABSOLUTE LYMPHOCYTES (AUTO) 0.8 10^3/uL (0.5-4.7); ABSOLUTE MONOCYTES (AUTO) 0.9 10^3/uL (0.1-1.4); ABSOLUTE NEUT (AUTO) 6.3 10^3/uL (1.7-8.2); BASOPHILS % (AUTO) 0.5 % (0-2); EOSINOPHILS % (AUTO) 0.5 % (0-6); HEMATOCRIT 36.2 % (37.9-51.0); HEMOGLOBIN 11.7 g/dL (13.5-17.0); LYMPHOCYTES % (AUTO) 9.6 % (13-45); MEAN CORPUSCULAR HEMOGLOBIN 21.2 pg (27.0-33.4); MEAN CORPUSCULAR HGB CONC 32.3 g/dL (32.0-36.0); MEAN CORPUSCULAR VOLUME 66 fl (80-97); MONOCYTES % (AUTO) 11.1 % (3-13); PLATELET COUNT 330 10^3/uL (150-450); RED BLOOD COUNT 5.51 10^6/uL (4.35-5.55); RED CELL DISTRIBUTION WIDTH 20.3 % (11.5-14.0); SEGMENTED NEUTROPHILS % (AUTO) 78.3 % (42-78); TOTAL CELLS COUNTED % (AUTO) 100 %; WHITE BLOOD COUNT 8.1 10^3/uL (4.0-10.5)
[2019-06-15 11:45] LABS: INTERNATIONAL RATION (INR) 1.24; PROTHROMBIN TIME 15.7 SEC (11.4-15.4)
[2019-06-15 11:46] LABS: PARTIAL THROMBOPLASTIN TIME 30.6 SEC (23.5-35.8)
[2019-06-15 11:58] LABS: ALBUMIN 4.5 g/dL (3.5-5.0); ALKALINE PHOSPHATASE 91 U/L (38-126); ANION GAP 13 (5-19); ASPARTATE AMINO TRANSFERASE 67 U/L (17-59); BILIRUBIN,DIRECT 0.2 mg/dL (0.0-0.4); BILIRUBIN,TOTAL 0.8 mg/dL (0.2-1.3); BLOOD UREA NITROGEN 18 mg/dL (7-20); CALCIUM 9.5 mg/dL (8.4-10.2); CARBON DIOXIDE 31 mmol/L (22-30); CHLORIDE 81 mmol/L (98-107); CREATINE KINASE 176 U/L (55-170); GLUCOSE 113 mg/dL (75-110); POTASSIUM 3.5 mmol/L (3.6-5.0); TOTAL PROTEIN 7.1 g/dL (6.3-8.2)
[2019-06-15 12:09] LABS: CREATINE KINASE MB 3.09 ng/mL (<4.55); TROPONIN I 0.014 ng/mL
--- NOTE | 2019-06-15 13:33 | RADIOLOGY REPORT (SQ) ---
EXAM DESCRIPTION: CHEST 2 VIEWS COMPLETED DATE/TIME: 06/15/2019 1:24 pm REASON FOR STUDY: intermintent syncope COMPARISON: 02/15/2019 NUMBER OF VIEWS: Two view. TECHNIQUE: Frontal and lateral radiographic views of the chest acquired. LIMITATIONS: None. FINDINGS: LUNGS AND PLEURA: No opacities, masses or pneumothorax. No pleural effusion. MEDIASTINUM AND HILAR STRUCTURES: No masses. No contour abnormalities. HEART AND VASCULAR STRUCTURES: Heart enlarged without failure. Aorta normal for age. BONES: No acute findings. HARDWARE: None in the chest. OTHER: No other significant finding. IMPRESSION: CARDIAC ENLARGEMENT WITHOUT FAILURE. TECHNICAL DOCUMENTATION: JOB ID: [id number] [employer]- All Rights Reserved Reading location - IP/workstation name: [email or web address]
--- NOTE | 2019-06-15 13:37 | ER Document Report ---
ED General - General Chief Complaint: Dizziness Stated Complaint: DIZZY/LEFT ARM NUMBNESS Time Seen by Provider: 06/15/19 11:05 Primary Care Provider: LEONOR RENDON MD [Primary Care Provider] - Follow up as needed Mode of Arrival: Ambulatory TRAVEL OUTSIDE OF THE [place] IN LAST 30 DAYS: No - HPI Notes: Patient presents with right hand numbness that began on Sunday and has been constant since that time in the absence of any other weakness or sensory deficits. No history of heart attack or stroke. No recent trauma. The symptoms are new have not occurred in the past. He also states that he gained approximately 12 to 15 pounds of weight and was placed on an additional diuretic last Sunday. Since that time he also states he feels lightheaded when he tries have a bowel movement or urinates and feels like he is going to pass out. He stopped taking his additional diuretic 2 days ago but is still been having symptoms when he tries to void or defecate. No chest pain or shortness of breath. - Related Data Allergies/Adverse Reactions: No Known Allergies Allergy (Verified 02/25/19 08:10) Past Medical History - General Information source: Patient - Social History Smoking Status: Former Smoker Cigarette use (# per day): No - former Frequency of alcohol use: None Drug Abuse: None Family History: CAD - father Patient has suicidal ideation: No Patient has homicidal ideation: No - Past Medical History Cardiac Medical History: Reports: Hx Atrial Fibrillation, Hx Coronary Artery Disease, Hx Hypercholesterolemia, Hx Hypertension - MEDICATED Denies: Hx Heart Attack Pulmonary Medical History: Reports: Hx COPD Denies: Hx Asthma, Hx Bronchitis, Hx Pneumonia EENT Medical History: Reports: None Neurological Medical History: Denies: Hx Seizures Renal/ Medical History: Denies: Hx Peritoneal Dialysis GI Medical History: Reports: Hx Colonoscopy, Hx Endoscopy. Denies: Hx Hepatitis, Hx Hiatal Hernia, Hx Ulcer Musculoskeletal Medical History: Reports Hx Arthritis Infectious Medical History: Denies: Hx Hepatitis Past Surgical History: Reports: Hx Cardiac Catheterization, Hx Coronary Stent. Denies: Hx Open Heart Surgery - Immunizations Hx Diphtheria, Pertussis, Tetanus Vaccination: No Review of Systems - Review of Systems Constitutional: No symptoms reported EENT: No symptoms reported Cardiovascular: No symptoms reported Respiratory: No symptoms reported Gastrointestinal: No symptoms reported Genitourinary: No symptoms reported Male Genitourinary: No symptoms reported Musculoskeletal: No symptoms reported Skin: No symptoms reported Hematologic/Lymphatic: No symptoms reported Neurological/Psychological: See HPI Physical Exam - Vital signs Vitals: Temp Pulse Resp BP Pulse Ox 97.6 F 71 24 H 175/92 H 100 06/15/19 08:36 06/15/19 08:36 06/15/19 08:36 06/15/19 08:36 06/15/19 08:36 - General General appearance: Appears well, Alert - HEENT Head: Normocephalic, Atraumatic - Respiratory Respiratory status: No respiratory distress Chest status: Nontender Breath sounds: Normal - Cardiovascular Rhythm: Regular Heart sounds: Normal auscultation Murmur: No - Abdominal Inspection: Normal Distension: No distension Bowel sounds: Normal - Back Back: Normal, Nontender - Neurological Neuro grossly intact: Yes Notes: 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 Subjective numbness of entire hand in all nerve distributions. Course - Re-evaluation Re-evalutation: 06/15/19 15:12 We will admit for patient's hyponatremia as well as right hand numbness and stroke rule out. Aspirin provided in emergency department - Vital Signs Vital signs: Temp Pulse Resp BP Pulse Ox 97.6 F 66 18 175/92 H 91 L 06/15/19 08:36 06/15/19 11:55 06/15/19 11:17 06/15/19 08:36 06/15/19 11:17 - Laboratory Result Diagrams: 06/15/19 11:29 06/15/19 11:29 Laboratory results interpreted by me: 06/15/19 06/15/19 06/15/19 11:29 11:29 11:29 Hgb 11.7 L Hct 36.2 L MCV 66 L MCH 21.2 L RDW 20.3 H Lymph % (Auto) 9.6 L Seg Neutrophils % 78.3 H PT 15.7 H Sodium 124.8 L Potassium 3.5 L Chloride 81 L Carbon Dioxide 31 H Glucose 113 H POC Glucose AST 67 H Creatine Kinase 176 H 06/15/19 11:49 Hgb Hct MCV MCH RDW Lymph % (Auto) Seg Neutrophils % PT Sodium Potassium Chloride Carbon Dioxide Glucose POC Glucose 125 H AST Creatine Kinase Discharge - Discharge Clinical Impression: Hyponatremia, Numbness of left hand Condition: Good Disposition: ADMITTED INPATIENT Admitting Provider: Mannava (Hospitalist) Unit Admitted: Medical Floor Referrals: LEONOR RENDON MD [Primary Care Provider] - Follow up as needed
--- NOTE | 2019-06-15 14:06 | RADIOLOGY REPORT (SQ) ---
EXAM DESCRIPTION: CT HEAD WITHOUT COMPLETED DATE/TIME: 06/15/2019 1:51 pm REASON FOR STUDY: L hand numbness COMPARISON: CT head 02/27/2008 TECHNIQUE: Axial images acquired through the brain without intravenous contrast. Images reviewed wi th bone, brain and subdural windows. Images stored on PACS. All CT scanners at this facility use dose modulation, iterative reconstruction, and/or weight based d osing when appropriate to reduce radiation dose to as low as reasonably achievable (ALARA). [facility]: Dose Right [facility]: CareDose [facility]: Dose Right [facility]: Teradose 4D [facility]: Smart Linquet RADIATION DOSE: CT Rad equipment meets quality standard of care and radiation dose reduction techniq ues were employed. CTDIvol: 48.8 mGy. DLP: 1128 mGy-cm. mGy. LIMITATIONS: None. FINDINGS: VENTRICLES: Normal size and contour. CEREBRUM: No mass effect. No hemorrhage. No midline shift. The wall-white matter differentiation i s maintained. No evidence for acute territorial infarction. CEREBELLUM: No mass effect. No hemorrhage. No alteration of density. No evidence for acute infarct ion. EXTRAAXIAL SPACES: No fluid collections. ORBITS AND GLOBE: Symmetrical contour of the globes. CALVARIUM: No depressed skull fracture. PARANASAL SINUSES: Mucous retention cyst/ polyp at the right maxillary sinus. SOFT TISSUES: No hematoma. IMPRESSION: NO ACUTE INTRACRANIAL IMAGING FINDINGS. EVIDENCE OF ACUTE STROKE: NO. COMMENT: Quality ID # [id number]: Final reports with documentation of one or more dose reduction techniques (e.g., Automated exposure control, adjustment of the mA and/or kV according to patient size, use of iterative reconstruction technique) TECHNICAL DOCUMENTATION: JOB ID: [id number] 2010 [employer]- All Rights Reserved Reading location - IP/workstation name: [email or web address]
[2019-06-15] MEDS ORDERED: ASPIRIN 325 MG TABLET PO ONE (15:12)
[2019-06-15] MEDS ORDERED: ONDANSETRON HCL INJ/PF 4 MG/2 ML SDV IV PRN (15:45)
[2019-06-15] MEDS ORDERED: IPRATROPIUM/ALBUTEROL 0.5-2.5 MG/3 ML AMPUL NEB ONE (15:45)
[2019-06-15] MEDS ORDERED: HYDRALAZINE HCL INJ/PF 20 MG/1 ML SDV IV PRN (15:51)
[2019-06-15] MEDS ORDERED: POTASSIUM CHLORIDE 10 MEQ CAPSULE.ER PO ONE (15:56)
--- NOTE | 2019-06-15 16:10 | PDOC H&P ---
History of Present Illness Admission Date/PCP: LEONOR RENDON MD Patient complains of: Came in with complaints of dizziness and feeling like passing out every time he tried to urinate for the last 5 days, complaining of left hand and arm numbness for the last 2 days. He is also complaining of nausea for the last 5 days. History of Present Illness: LEONEL SCHULTZ is a 64 year old male with history of atrial fibrillation, hypertension, diabetes, COPD, sleep apnea on CPAP came to the emergency room with complaints of feeling sick in the stomach nauseated every time he tried to urinate. This is happening for the last 5 days. Is also complaining of left arm numbness for the last 2 days. Denies any chest pains denies any shortness of breath. He went to see his primary care physician few days ago and he was told that he had a fluid in the lungs started on lisinopril and hydrochlorothiazide. He is also taking Lasix. Past Medical History Cardiac Medical History: Reports: Atrial Fibrillation, Coronary Artery Disease, Hyperlipidema, Hypertension - MEDICATED Denies: Myocardial Infarction Pulmonary Medical History: Reports: Chronic Obstructive Pulmonary Disease (COPD) Denies: Asthma, Bronchitis, Pneumonia EENT Medical History: Reports: None Neurological Medical History: Denies: Seizures GI Medical History: Denies: Hepatitis, Hiatal Hernia Musculoskeltal Medical History: Reports: Arthritis Hematology: Denies: Anemia, Sickle Cell Disease Past Surgical History Past Surgical History: Reports: Cardiac Catheterization, Coronary Stent, Orthopedic Surgery Social History Information Source: Patient Lives with: Family Smoking Status: Former Smoker Frequency of Alcohol Use: None Hx Recreational Drug Use: No Drugs: None - Advance Directive Resuscitation Status: Do Not Resuscitate Family History Family History: CAD - father Parental Family History Reviewed: Yes - Family history of hypertension and heart disease. Children Family History Reviewed: Yes Sibling(s) Family History Reviewed.: Yes Medication/Allergy Home Medications: Apixaban [Eliquis] 5 mg PO BID 05/26/17 Diltiazem HCl [Cartia Xt] 240 mg PO DAILY 05/26/17 Omeprazole 40 mg PO DAILY 05/26/17 Simvastatin 20 mg PO DAILY 05/26/17 Tamsulosin HCl [Flomax] 0.4 mg PO DAILY 05/26/17 Tramadol HCl/Acetaminophen [Tramadol-Acetaminophn 37.5-325] 1 each PO TID 05/26/17 Zolpidem Tartrate 10 mg PO QHS 05/26/17 Besifloxacin HCl [Besivance 0.6% Oph Susp 5 ml] 1 drop OP .12PM,3PM,8PM TODAY 04/18/18 Albuterol Sulfate [Proair Hfa Inhalation Aerosol 8.5 gm Mdi] 1 puff IH Q4 PRN 02/24/19 Furosemide [Lasix] 40 mg PO BID 02/24/19 Allergies/Adverse Reactions: No Known Allergies Allergy (Verified 02/25/19 08:10) Review of Systems Constitutional: ABSENT: fever(s) Eyes: ABSENT: visual disturbances Respiratory: ABSENT: cough, hemoptysis Gastrointestinal: ABSENT: abdominal pain, constipation, diarrhea, hematemesis, hematochezia, nausea, vomiting Musculoskeletal: ABSENT: joint swelling Integumentary: ABSENT: rash, wounds Neurological: ABSENT: abnormal gait, abnormal speech, confusion, dizziness, focal weakness, syncope Psychiatric: ABSENT: anxiety, depression, homidical ideation, suicidal ideation Physical Exam Vital Signs: Temp Pulse Resp BP Pulse Ox 97.6 F 66 18 175/92 H 91 L 06/15/19 08:36 06/15/19 11:55 06/15/19 11:17 06/15/19 08:36 06/15/19 11:17 Intake & Output 06/14/19 06/15/19 06/16/19 06:59 06:59 06:59 Weight 138 kg General appearance: PRESENT: no acute distress Head exam: PRESENT: atraumatic Eye exam: PRESENT: PERRLA Mouth exam: PRESENT: moist, tongue midline Teeth exam: PRESENT: poor dentation Neck exam: ABSENT: carotid bruit, JVD, lymphadenopathy, thyromegaly Respiratory exam: PRESENT: decreased breath sounds Cardiovascular exam: PRESENT: RRR. ABSENT: diastolic murmur, rubs, systolic murmur GI/Abdominal exam: PRESENT: normal bowel sounds, soft. ABSENT: distended, guarding, mass, organolmegaly, rebound, tenderness Rectal exam: PRESENT: deferred Extremities exam: PRESENT: +1 edema Neurological exam: PRESENT: alert, awake, oriented to person, oriented to place, oriented to time, oriented to situation, CN II-XII grossly intact. ABSENT: motor sensory deficit Psychiatric exam: PRESENT: appropriate affect, normal mood. ABSENT: homicidal ideation, suicidal ideation Results Laboratory Results: 06/15/19 11:29 06/15/19 11:29 06/15/19 06/15/19 06/15/19 08:35 11:29 11:29 WBC 8.1 RBC 5.51 Hgb 11.7 L Hct 36.2 L MCV 66 L MCH 21.2 L MCHC 32.3 RDW 20.3 H Plt Count 330 Seg Neutrophils % 78.3 H Sodium 124.8 L Potassium 3.5 L Chloride 81 L Carbon Dioxide 31 H Anion Gap 13 BUN 18 Creatinine 0.81 Est GFR ( Amer) > 60 Glucose 113 H Calcium 9.5 Total Bilirubin 0.8 AST 67 H Alkaline Phosphatase 91 Total Protein 7.1 Albumin 4.5 Urine Color YELLOW Urine Appearance CLEAR Urine pH 7.0 Ur Specific [place] 1.008 Urine Protein NEGATIVE Urine Glucose (UA) NEGATIVE Urine Ketones NEGATIVE Urine Blood NEGATIVE Urine Nitrite NEGATIVE Ur Leukocyte Esterase NEGATIVE Urine RBC (Auto) 0 06/15/19 06/15/19 06/15/19 11:29 11:29 11:29 Creatine Kinase 176 H CK-MB (CK-2) 3.09 Troponin I 0.014 NT-Pro-B Natriuret Pep 856 Impressions: Chest X-Ray 06/15/19 11:12 IMPRESSION: CARDIAC ENLARGEMENT WITHOUT FAILURE. Head CT 06/15/19 13:30 IMPRESSION: NO ACUTE INTRACRANIAL IMAGING FINDINGS. EVIDENCE OF ACUTE STROKE: NO. Assessment and Plan - Diagnosis (1) TIA (transient ischemic attack) Is this a current diagnosis for this admission?: Yes Plan: 06/15/2019 64-year-old male came to the emergency room complaining of left and hand this plan to put him in IMCU with a stroke protocol. MRI of the brain, carotid Doppler was requested. GI prophylaxis initiated. Patient is already on Eliquis at home which is going to be resumed here. TIA may be secondary to uncontrolled hypertension. (2) HTN (hypertension) Is this a current diagnosis for this admission?: Yes Plan: 06/15/[id number]-vecf-old male came in with elevated blood pressures leading to may be TIA and dizziness in my opinion patient might have hypertensive urgency. He was placed on hydralazine 20 mg IV every 4 as needed for systolic blood pressure more than 160 and dbp more than 100 (3) Morbid obesity Is this a current diagnosis for this admission?: No Plan: 06/15/2019-patient BMI is more than 41 diet exercise weight loss lifestyle modifi cations are discussed with the patient. (4) Sleep apnea Is this a current diagnosis for this admission?: No Plan: 06/15/2019-patient has history of obesity associated hypoventilation syndrome uses CPAP at night. Plan is to resume CPAP during the hospital stay. (5) Hyponatremia Is this a current diagnosis for this admission?: Yes Plan: 06/15/2019-patient serum sodium is around 124.5 his baseline sodium is around 136 137 he was recently started on lisinopril and hydrochlorothiazide as an outpatient for fluid in the chest. Hyponatremia may be secondary to medication use. To hold the lisinopril and hydrochlorothiazide at this moment. (6) Atrial fibrillation Is this a current diagnosis for this admission?: No Plan: 06/15/2019-patient has history of chronic atrial fibrillation on Eliquis. Plan is to resume Eliquis during this hospital stay. (7) Hypokalemia Is this a current diagnosis for this admission?: Yes Plan: 06/15/2019-serum potassium is 3.5 today to supplement p.o. potassium. to Check the labs on daily basis. - Time Time Spent with patient: 25-34 minutes Medications reviewed and adjusted accordingly: Yes Anticipated discharge: Home
[2019-06-15] MEDS: ACETAMINOPHEN 325 MG TABLET PO PRN ×2 (17:02→20:46)
--- NOTE | 2019-06-15 18:14 | RADIOLOGY REPORT (SQ) ---
EXAM DESCRIPTION: MRI HEAD WITHOUT COMPLETED DATE/TIME: 06/15/2019 5:41 pm REASON FOR STUDY: tia , dizziness, right hand weakness. Hypertension. COMPARISON: CT head 06/15/2019, 02/27/2008 TECHNIQUE: Multiplanar imaging includes non-contrasted T1, T2, FLAIR, and diffusion with ADC map seq uences. Images stored on PACS. LIMITATIONS: None. FINDINGS: ANATOMY: No anomalies. Normal vascular flow voids. Pituitary fossa normal. CSF SPACES: Normal in size and contour. No hemorrhage. CEREBRUM: Sulci and gyri normal in size and contour. Scattered hyperdensities within the white matte r on FLAIR imaging may be secondary to chronic microvascular ischemic changes. No evidence of hemorr dimas, mass effect, or extraaxial fluid collection. POSTERIOR FOSSA: No signal alteration. No hemorrhage. No edema or mass effect. DIFFUSION IMAGING: Negative for acute or sub-acute infarction. ORBITS: Symmetrical globes. PARANASAL SINUSES: No air-fluid levels. Mucous retention cyst/polyp at the right maxillary sinus. IMPRESSION: No evidence for acute ischemia. Chronic microvascular ischemic changes. EVIDENCE OF ACUTE STROKE: NO. TECHNICAL DOCUMENTATION: JOB ID: [id number] 2010 [employer]- All Rights Reserved Reading location - IP/workstation name: [email or web address]
[2019-06-15] MEDS: APIXABAN 5 MG TABLET PO SCH (18:18)
[2019-06-15 18:35] LABS: ALBUMIN 4.5 g/dL (3.5-5.0); ALKALINE PHOSPHATASE 83 U/L (38-126); ANION GAP 12 (5-19); ASPARTATE AMINO TRANSFERASE 67 U/L (17-59); BILIRUBIN,DIRECT 0.2 mg/dL (0.0-0.4); BILIRUBIN,TOTAL 0.8 mg/dL (0.2-1.3); BLOOD UREA NITROGEN 18 mg/dL (7-20); CALCIUM 9.3 mg/dL (8.4-10.2); CARBON DIOXIDE 34 mmol/L (22-30); CHLORIDE 79 mmol/L (98-107); GLUCOSE 119 mg/dL (75-110); POTASSIUM 3.3 mmol/L (3.6-5.0); TOTAL PROTEIN 7.1 g/dL (6.3-8.2)
[2019-06-15 18:46] LABS: CREATINE KINASE MB 2.68 ng/mL (<4.55); TROPONIN I < 0.012 ng/mL
[2019-06-15] MEDS ORDERED: ATORVASTATIN CALCIUM 40 MG TABLET PO SCH ×2 (22:00)
[2019-06-15] MEDS ORDERED: ZOLPIDEM TARTRATE 5 MG TABLET PO SCH (22:00)
[2019-06-16 01:18] LABS: TROPONIN I 0.013 ng/mL
[2019-06-16 01:22] LABS: CREATINE KINASE MB 2.75 ng/mL (<4.55)
[2019-06-16] MEDS: ACETAMINOPHEN 325 MG TABLET PO PRN ×2 (03:26→10:08)
[2019-06-16 07:04] LABS: ABSOLUTE LYMPHOCYTES (AUTO) 1.2 10^3/uL (0.5-4.7); ABSOLUTE MONOCYTES (AUTO) 0.8 10^3/uL (0.1-1.4); ABSOLUTE NEUT (AUTO) 3.7 10^3/uL (1.7-8.2); BASOPHILS % (AUTO) 0.4 % (0-2); EOSINOPHILS % (AUTO) 0.9 % (0-6); HEMATOCRIT 34.7 % (37.9-51.0); HEMOGLOBIN 11.1 g/dL (13.5-17.0); LYMPHOCYTES % (AUTO) 20.4 % (13-45); MEAN CORPUSCULAR HEMOGLOBIN 21.2 pg (27.0-33.4); MEAN CORPUSCULAR HGB CONC 32.1 g/dL (32.0-36.0); MEAN CORPUSCULAR VOLUME 66 fl (80-97); MONOCYTES % (AUTO) 14.2 % (3-13); PLATELET COUNT 310 10^3/uL (150-450); RED BLOOD COUNT 5.25 10^6/uL (4.35-5.55); RED CELL DISTRIBUTION WIDTH 20.3 % (11.5-14.0); SEGMENTED NEUTROPHILS % (AUTO) 64.1 % (42-78); TOTAL CELLS COUNTED % (AUTO) 100 %; WHITE BLOOD COUNT 5.8 10^3/uL (4.0-10.5)
[2019-06-16 07:19] LABS: ALBUMIN 4.2 g/dL (3.5-5.0); ALKALINE PHOSPHATASE 75 U/L (38-126); ANION GAP 10 (5-19); ASPARTATE AMINO TRANSFERASE 69 U/L (17-59); BILIRUBIN,DIRECT 0.3 mg/dL (0.0-0.4); BILIRUBIN,TOTAL 0.9 mg/dL (0.2-1.3); BLOOD UREA NITROGEN 17 mg/dL (7-20); CALCIUM 9.4 mg/dL (8.4-10.2); CARBON DIOXIDE 34 mmol/L (22-30); CHLORIDE 83 mmol/L (98-107); CHOLESTEROL 137.94 mg/dL (0-200); CREATINE KINASE 121 U/L (55-170); GLUCOSE 109 mg/dL (75-110); POTASSIUM 3.4 mmol/L (3.6-5.0); TOTAL PROTEIN 6.8 g/dL (6.3-8.2); TRIGLYCERIDES 185 mg/dL (<150)
[2019-06-16 07:30] LABS: DIRECT LDL 91 mg/dL (<100)
[2019-06-16 07:31] LABS: CREATINE KINASE MB 2.63 ng/mL (<4.55); TROPONIN I 0.014 ng/mL
[2019-06-16] MEDS: APIXABAN 5 MG TABLET PO SCH (10:12)
--- NOTE | 2019-06-16 10:28 | PDOC DISCHARGE SUMMARY ---
General - Admit/Disc Date/PCP Admission Date/Primary Care Provider: 06/15/19 16:01 LEONOR RENDON MD Discharge Date: 06/16/19 - Discharge Diagnosis (1) TIA (transient ischemic attack) Is this a current diagnosis for this admission?: Yes (3) A-fib Is this a current diagnosis for this admission?: Yes (4) Hypertension Is this a current diagnosis for this admission?: Yes (5) Hyperlipidemia Is this a current diagnosis for this admission?: Yes (6) Obstructive sleep apnea Is this a current diagnosis for this admission?: Yes (7) Diabetes mellitus Is this a current diagnosis for this admission?: Yes Summary: Type II - Additional Information Resuscitation Status: Do Not Resuscitate Home Medications: Apixaban [Eliquis] 5 mg PO BID 05/26/17 Diltiazem HCl [Cartia Xt] 240 mg PO DAILY 05/26/17 Omeprazole 40 mg PO DAILY 05/26/17 Simvastatin 20 mg PO DAILY 05/26/17 Tamsulosin HCl [Flomax] 0.4 mg PO DAILY 05/26/17 Zolpidem Tartrate 10 mg PO QHS 05/26/17 Albuterol Sulfate [Proair Hfa Inhalation Aerosol 8.5 gm Mdi] 1 puff IH Q4 PRN 02/24/19 Furosemide [Lasix] 40 mg PO BID 02/24/19 Isosorbide Mononitrate [Imdur 30 mg Tablet.er] 30 mg PO DAILY 06/15/19 Losartan Potassium [Cozaar 50 mg Tablet] 50 mg PO DAILY 06/15/19 Metolazone [Zaroxolyn 2.5 mg Tablet] 2.5 mg PO DAILY 06/15/19 Metoprolol Succinate [Toprol Xl 25 mg Tab.sr] 25 mg PO DAILY 06/15/19 Umeclidinium Ladson [Incruse Ellipta] 1 puff IH DAILY 06/15/19 Tramadol HCl/Acetaminophen [Ultracet 37.5 mg/325 mg Tablet] 1 each PO TID History of Present Illness History of Present Illness: LEONEL SCHULTZ is a 64 year old male with history of atrial fibrillation, hypertension, diabetes, COPD, sleep apnea on CPAP came to the emergency room with complaints of feeling sick in the stomach nauseated every time he tried to urinate. This is happening for the last 5 days. Is also complaining of left arm numbness for the last 2 days. Denies any chest pains denies any shortness of breath. He went to see his primary care physician few days ago and he was told that he had a fluid in the lungs started on lisinopril and hydrochlorothiazide. He is also taking Lasix. Hospital Course Hospital Course: This is 64 years old male patient was past medical history of morbid obesity, obstructive sleep apnea, atrial fibrillation on Eliquis, hypertension, diabetes mellitus, COPD, hyperlipidemia presented with chief complaint of 5 days history of feeling dizziness and also as if he is going to pass while straining at urine. With impression of TIA patient admitted for observation. His CT scan and MRI of the head are negative. I seen and examined the patient while sitting at the bedside. He is awake alert and oriented. He complains of left upper quadrant pain. He does not have any neurologic deficits. The dizziness might be explained by the medications he has been taking which includes Ambien, tramadol and also Flomax. Patient advised to talk to his primary care physician and adjust his home medications. Physical Exam Vital Signs: Temp Pulse Resp BP Pulse Ox 98.0 F 49 L 17 132/68 H 97 06/16/19 07:41 06/16/19 07:41 06/16/19 07:41 06/16/19 07:41 06/16/19 07:41 Intake & Output 06/15/19 06/16/19 06/17/19 06:59 06:59 06:59 Intake Total 520 Balance 520 Weight 138.4 kg General appearance: PRESENT: no acute distress Head exam: PRESENT: atraumatic Eye exam: PRESENT: conjunctiva pink Neck exam: ABSENT: carotid bruit, JVD, lymphadenopathy, thyromegaly Respiratory exam: PRESENT: clear to auscultation kuldeep. ABSENT: rales, rhonchi, wheezes Cardiovascular exam: PRESENT: RRR. ABSENT: diastolic murmur, rubs, systolic murmur GI/Abdominal exam: PRESENT: normal bowel sounds, soft. ABSENT: distended, guarding, mass, organolmegaly, rebound, tenderness Neurological exam: PRESENT: alert, awake, oriented to person, oriented to place, oriented to time, oriented to situation Results Laboratory Results: 06/16/19 06:37 06/16/19 06:37 06/15/19 06/15/19 06/15/19 11:29 11:29 18:00 WBC 8.1 RBC 5.51 Hgb 11.7 L Hct 36.2 L MCV 66 L MCH 21.2 L MCHC 32.3 RDW 20.3 H Plt Count 330 Seg Neutrophils % 78.3 H Sodium 124.8 L 125.3 L Potassium 3.5 L 3.3 L Chloride 81 L 79 L Carbon Dioxide 31 H 34 H Anion Gap 13 12 BUN 18 18 Creatinine 0.81 0.80 Est GFR ( Amer) > 60 > 60 Glucose 113 H 119 H Calcium 9.5 9.3 Magnesium Total Bilirubin 0.8 0.8 AST 67 H 67 H Alkaline Phosphatase 91 83 Total Protein 7.1 7.1 Albumin 4.5 4.5 Triglycerides Cholesterol LDL Cholesterol Direct VLDL Cholesterol HDL Cholesterol Lipase TSH 06/16/19 06/16/19 06/16/19 06:37 06:37 06:37 WBC 5.8 RBC 5.25 Hgb 11.1 L Hct 34.7 L MCV 66 L MCH 21.2 L MCHC 32.1 RDW 20.3 H Plt Count 310 Seg Neutrophils % 64.1 Sodium 127.3 L Potassium 3.4 L Chloride 83 L Carbon Dioxide 34 H Anion Gap 10 BUN 17 Creatinine 0.72 Est GFR ( Amer) > 60 Glucose 109 Calcium 9.4 Magnesium 2.3 Total Bilirubin 0.9 AST 69 H Alkaline Phosphatase 75 Total Protein 6.8 Albumin 4.2 Triglycerides 185 H Cholesterol 137.94 LDL Cholesterol Direct 91 VLDL Cholesterol 37.0 H HDL Cholesterol 42 Lipase 63.6 TSH 1.23 06/15/19 06/15/19 06/15/19 11:29 11:29 11:29 Creatine Kinase 176 H CK-MB (CK-2) 3.09 Troponin I 0.014 NT-Pro-B Natriuret Pep 856 06/15/19 06/15/19 06/16/19 18:00 18:00 00:37 Creatine Kinase 152 158 CK-MB (CK-2) 2.68 Troponin I < 0.012 NT-Pro-B Natriuret Pep 06/16/19 06/16/19 06/16/19 00:37 06:37 06:37 Creatine Kinase 121 CK-MB (CK-2) 2.75 2.63 Troponin I 0.013 0.014 NT-Pro-B Natriuret Pep 450 Impressions: Head MRI 06/15/19 00:00 IMPRESSION: No evidence for acute ischemia. Chronic microvascular ischemic changes. EVIDENCE OF ACUTE STROKE: NO. Chest X-Ray 06/15/19 11:12 IMPRESSION: CARDIAC ENLARGEMENT WITHOUT FAILURE. Head CT 06/15/19 13:30 IMPRESSION: NO ACUTE INTRACRANIAL IMAGING FINDINGS. EVIDENCE OF ACUTE STROKE: NO. Qualifiers - * PATIENT BEING DISCHARGED WITH ANY OF THE FOLLOWING DIAGNOSIS: No Acute Heart Failure - Is this a Heart Failure Patient?: No LVEF < 40%?: No- if no continue to question #3 3. Anticoagulant therapy for permanect/persistent/paraoxysmal Afib or Aflutter: N/A
[2019-06-16 11:51] VITALS: BP 127/84
--- NOTE | 2019-06-16 14:13 | RADIOLOGY REPORT (SQ) ---
EXAM DESCRIPTION: CAROTID DOPPLER COMPLETED DATE/TIME: 06/16/2019 2:02 pm REASON FOR STUDY: tia COMPARISON: None. TECHNIQUE: Grayscale ultrasound, Doppler velocity and spectra, and color Doppler images acquired of the extra-cranial carotid and vertebral arteries. Images stored on PACS. LIMITATIONS: None. FINDINGS: RIGHT CAROTID CCA Velocities: Within normal limits. ICA Velocities Peak systolic 84 cm/s. End diastolic 30 cm/s. Proximal ICA/CCA peak systolic ratio 1.27. There is a small amount of plaque in the common carotid and carotid bulb. LEFT CAROTID CCA Velocities: Within normal limits. ICA Velocities Peak systolic 78 cm/s. End diastolic 31 cm/s. Proximal ICA/CCA peak systolic ratio 1.04. Spectra normal. No significant plaque. VERTEBRAL ARTERIES: Antegrade flow. Normal waveforms. SUBCLAVIAN ARTERIES: No finding. OTHER: No other significant finding. IMPRESSION: NO HEMODYNAMICALLY SIGNIFICANT STENOSIS. COMMENT: Quality ID #[id number]: Velocity criteria are extrapolated from the diameter data as defined by t he Society of Radiologists in Ultrasound Consensus Conference. Radiology 2003: 229; 340-346. TECHNICAL DOCUMENTATION: JOB ID: [id number] [employer]- All Rights Reserved Reading location - IP/workstation name: [email or web address]
== END 2019-06-16 11:49 | disposition home or self-care (01) | DRG 69 ==
LOC: ER 08:30 → EH 16:01 → 3W 18:42
PROVIDERS: ADMIT Internal Medicine; ATTEND Internal Medicine
DX: G45.9 Transient cerebral ischemic attack, unspecified (principal); E87.1 Hypo-osmolality and hyponatremia; Z68.41 Body mass index [BMI] 40.0-44.9, adult; I48.91 Unspecified atrial fibrillation; E66.01 Morbid (severe) obesity due to excess calories; I10 Essential (primary) hypertension; E78.5 Hyperlipidemia, unspecified; G47.33 Obstructive sleep apnea (adult) (pediatric); E11.9 Type 2 diabetes mellitus without complications; Z66 Do not resuscitate; J44.9 Chronic obstructive pulmonary disease, unspecified; R20.0 Anesthesia of skin; M19.90 Unspecified osteoarthritis, unspecified site; E87.6 Hypokalemia; Z79.01 Long term (current) use of anticoagulants; Z95.5 Presence of coronary angioplasty implant and graft; Z87.891 Personal history of nicotine dependence; Z82.49 Family history of ischemic heart disease and other diseases of the circulatory system
CPT/HCPCS: 36415; 70450; 70551; 71046; 80053; 80061; 81001; 82550; 82553; 82962; 83036; 83690; 83735; 83880; 84443; 84484; 85025; 85610; 85730; 87070; 93880; 94640; 94660; 99285; J2405; J3490

== ENCOUNTER → 2019-06-18 | Outpatient (CLI) | payer BC ==
--- NOTE | 2019-06-18 14:37 | RADIOLOGY REPORT (SQ) ---
EXAM DESCRIPTION: ABDOMEN 2 VIEWS COMPLETED DATE/TIME: 06/18/2019 2:27 pm REASON FOR STUDY: CONSTIPATION, UNSPECIFIED K59.00 CONSTIPATION, UNSPECIFIED R10.12 LEFT UPPER ODILIA DRANT PAIN K27.9 PEPTIC ULC, SITE UNSP, UNSP AC OR CHR, W/O HEMOR OR COMPARISON: None. NUMBER OF VIEWS: Two views. TECHNIQUE: Supine and erect/decubitus radiographic images of the abdomen acquired. LIMITATIONS: None. FINDINGS: FREE AIR: None. No abnormal gas collections. LUNG BASES: Clear. BOWEL GAS PATTERN: Gas pattern is nonobstructive. There is a moderate amount of stool throughout the colon. CALCIFICATIONS: No suspicious calcifications. SOFT TISSUES: No gross mass or suggestion of organomegaly. HARDWARE: None in the abdomen. BONES: No acute fracture. No worrisome bone lesions. OTHER: No other significant finding. IMPRESSION: Moderate constipation. No other significant findings. TECHNICAL DOCUMENTATION: JOB ID: [id number] [employer]- All Rights Reserved Reading location - IP/workstation name: [email or web address]
== END ==
LOC: OD 14:03
PROVIDERS: ATTEND Family Medicine Geriatric Medicine
DX: K59.00 Constipation, unspecified (principal); R10.12 Left upper quadrant pain; K27.9 Peptic ulcer, site unspecified, unspecified as acute or chronic, without hemorrhage or perforation; I48.91 Unspecified atrial fibrillation
CPT/HCPCS: 74019

== ENCOUNTER 2019-12-31 10:23 | Inpatient (IN) | payer MEDICARE, BC ==
--- NOTE | 2019-12-31 10:58 | ER Document Report ---
ED Medical Screen (RME) - General Chief Complaint: Dizziness Stated Complaint: WEIGHT GAIN,DIZZY Time Seen by Provider: 12/31/19 10:52 Primary Care Provider: LEONOR RENDON MD [Primary Care Provider] - Follow up as needed Mode of Arrival: Ambulatory Information source: Patient Notes: 64-year-old male with history of CHF presents to the emergency department sent over by Dr. Santana. Patient reports he has had increasing weight gain and recent bronchitis. Patient reports Dr. Henry has placed him on several different medications. His last 2 medications made him very dizzy. He reports he could not even stand up to urinate. No complaints of fever vomiting diarrhea. I have greeted and performed a rapid initial assessment of this patient. A com prehensive ED assessment and evaluation of the patient, analysis of test results and completion of the medical decision making process will be conducted by additional ED providers. TRAVEL OUTSIDE OF THE [place] IN LAST 30 DAYS: No - Related Data Allergies/Adverse Reactions: No Known Allergies Allergy (Verified 12/31/19 10:51) Past Medical History - Past Medical History Cardiac Medical History: Reports: Hx Atrial Fibrillation, Hx Coronary Artery Disease, Hx Hypercholesterolemia, Hx Hypertension - MEDICATED Denies: Hx Heart Attack Pulmonary Medical History: Reports: Hx COPD Denies: Hx Asthma, Hx Bronchitis, Hx Pneumonia Neurological Medical History: Denies: Hx Seizures Renal/ Medical History: Denies: Hx Peritoneal Dialysis GI Medical History: Reports: Hx Colonoscopy, Hx Endoscopy. Denies: Hx Hepatitis, Hx Hiatal Hernia, Hx Ulcer Musculoskeltal Medical History: Reports Hx Arthritis Infectious Medical History: Denies: Hx Hepatitis Past Surgical History: Reports: Hx Cardiac Catheterization, Hx Coronary Stent, Hx Orthopedic Surgery. Denies: Hx Open Heart Surgery - Immunizations Hx Diphtheria, Pertussis, Tetanus Vaccination: No Physical Exam - Vital signs Vitals: Temp Pulse Resp BP Pulse Ox 98.1 F 63 22 H 122/74 94 12/31/19 10:47 12/31/19 10:47 12/31/19 10:47 12/31/19 10:47 12/31/19 10:47 Course - Vital Signs Vital signs: Temp Pulse Resp BP Pulse Ox 98.1 F 63 22 H 122/74 94 12/31/19 10:47 12/31/19 10:47 12/31/19 10:47 12/31/19 10:47 12/31/19 10:47 Doctor's Discharge - Discharge Referrals: LEONOR RENDON MD [Primary Care Provider] - Follow up as needed
--- NOTE | 2019-12-31 11:39 | RADIOLOGY REPORT (SQ) ---
EXAM DESCRIPTION: CHEST 2 VIEWS COMPLETED DATE/TIME: 12/31/2019 11:26 am REASON FOR STUDY: cough, hx CHF, weight gain COMPARISON: 06/15/2019 EXAM PARAMETERS: NUMBER OF VIEWS: two views TECHNIQUE: Digital Frontal and Lateral radiographic views of the chest acquired. RADIATION DOSE: NA LIMITATIONS: none FINDINGS: LUNGS AND PLEURA: No opacities, masses or pneumothorax. No pleural effusion. MEDIASTINUM AND HILAR STRUCTURES: No masses or contour abnormalities. HEART AND VASCULAR STRUCTURES: Stable cardiomegaly. No failure or effusions. BONES: No acute findings. HARDWARE: None in the chest. OTHER: No other significant finding. IMPRESSION: Stable cardiomegaly. No acute findings. TECHNICAL DOCUMENTATION: JOB ID: [id number] [employer]- All Rights Reserved Reading location - IP/workstation name: [email or web address]
[2019-12-31 11:50] LABS: ABSOLUTE EOSINOPHILS # (AUTO) 0.1 10^3/uL (0.0-0.6); ABSOLUTE LYMPHOCYTES (AUTO) 0.6 10^3/uL (0.5-4.7); ABSOLUTE MONOCYTES (AUTO) 0.5 10^3/uL (0.1-1.4); ABSOLUTE NEUT (AUTO) 6.5 10^3/uL (1.7-8.2); BASOPHILS % (AUTO) 0.3 % (0-2); EOSINOPHILS % (AUTO) 1.4 % (0-6); HEMATOCRIT 35.8 % (37.9-51.0); HEMOGLOBIN 11.9 g/dL (13.5-17.0); MEAN CORPUSCULAR HEMOGLOBIN 25.3 pg (27.0-33.4); MEAN CORPUSCULAR HGB CONC 33.1 g/dL (32.0-36.0); MEAN CORPUSCULAR VOLUME 76 fl (80-97); MONOCYTES % (AUTO) 6.9 % (3-13); PLATELET COUNT 224 10^3/uL (150-450); RED BLOOD COUNT 4.69 10^6/uL (4.35-5.55); SEGMENTED NEUTROPHILS % (AUTO) 83.4 % (42-78); TOTAL CELLS COUNTED % (AUTO) 100 %; WHITE BLOOD COUNT 7.8 10^3/uL (4.0-10.5)
[2019-12-31 12:18] LABS: ALBUMIN 3.9 g/dL (3.5-5.0); ALKALINE PHOSPHATASE 68 U/L (38-126); ANION GAP 9 (5-19); ASPARTATE AMINO TRANSFERASE 56 U/L (17-59); BILIRUBIN,DIRECT 0.2 mg/dL (0.0-0.4); BILIRUBIN,TOTAL 0.7 mg/dL (0.2-1.3); BLOOD UREA NITROGEN 18 mg/dL (7-20); CALCIUM 8.9 mg/dL (8.4-10.2); CARBON DIOXIDE 34 mmol/L (22-30); CHLORIDE 91 mmol/L (98-107); GLUCOSE 105 mg/dL (75-110); POTASSIUM 3.6 mmol/L (3.6-5.0); TOTAL PROTEIN 6.6 g/dL (6.3-8.2)
[2019-12-31 12:28] LABS: TROPONIN I 0.019 ng/mL
[2019-12-31 13:12] LABS: APPEARANCE,URINE CLEAR; BILIRUBIN,URINE NEGATIVE (NEGATIVE); COLOR,URINE YELLOW; GLUCOSE, URINE NEGATIVE (NEGATIVE); KETONES,URINE NEGATIVE (NEGATIVE); LEUKOCYTE ESTERASE,URINE NEGATIVE (NEGATIVE); NITRITE,URINE NEGATIVE (NEGATIVE); PROTEIN,URINE NEGATIVE (NEGATIVE); URINE SPECIFIC GRAVITY 1.015; UROBILINOGEN,URINE NEGATIVE mg/dL (<2.0)
[2019-12-31 13:14] LABS: ADD MANUAL MICROSCOPIC YES
[2019-12-31] MEDS ORDERED: METHYLPREDNISOLONE INJ 125 MG/2 ML SDV IV ONE (14:06)
[2019-12-31] MEDS ORDERED: FUROSEMIDE INJ/PF 40 MG/4 ML SDV IV ONE (14:07)
[2019-12-31] MEDS ORDERED: IPRATROPIUM/ALBUTEROL 0.5-2.5 MG/3 ML AMPUL NEB ONE (14:07)
--- NOTE | 2019-12-31 14:14 | ER Document Report ---
ED General - General Chief Complaint: CHF Exacerbation Stated Complaint: WEIGHT GAIN,DIZZY Time Seen by Provider: 12/31/19 10:52 Primary Care Provider: LEONOR RENDON MD [Primary Care Provider] - Follow up as needed Mode of Arrival: Ambulatory TRAVEL OUTSIDE OF THE [place] IN LAST 30 DAYS: No - HPI Notes: This is a 64-year-old male who presents the emergency department for evaluation of increasing shortness of breath as well as weight gain. He is a patient of Dr. Henry. The patient has been being managed as an outpatient by Dr. Henry for the last several weeks. He has been trying to diurese him, adding new medications, but he has been unsuccessful. He states that his edema has improved, but he continues to have shortness of breath, and per Dr. Henry he is continued to gain weight weekly. Patient states that he was supposed to start metolazone, but he felt very dizzy with it, so he did not take it. He has had a cough. He complains of some chest tightness that he states feels like shortness of breath. No fevers. His cough has been minimally productive. - Related Data Allergies/Adverse Reactions: No Known Allergies Allergy (Verified 12/31/19 10:51) Home Medications: Cardia XT 240 mg daily, Eliquis 5 mg twice a day, potassium 20 mEq daily, Lasix 40 mg daily, omeprazole 40 mg daily, Ultram daily, simvastatin 20 mg daily, Flomax 0.4 mg daily, Ambien 10 mg daily, Symbicort twice a day, metoprolol 25 mg twice a day, losartan 25 mg daily Past Medical History - General Information source: Patient - Social History Smoking Status: Former Smoker Chew tobacco use (# tins/day): No Frequency of alcohol use: None Drug Abuse: None Family History: CAD - father Patient has suicidal ideation: No Patient has homicidal ideation: No - Past Medical History Cardiac Medical History: Reports: Hx Atrial Fibrillation, Hx Coronary Artery Disease, Hx Hypercholesterolemia, Hx Hypertension Denies: Hx Heart Attack Pulmonary Medical History: Reports: Hx COPD Denies: Hx Asthma, Hx Bronchitis, Hx Pneumonia Neurological Medical History: Denies: Hx Seizures Renal/ Medical History: Denies: Hx Peritoneal Dialysis GI Medical History: Reports: Hx Colonoscopy, Hx Endoscopy. Denies: Hx Hepatitis, Hx Hiatal Hernia, Hx Ulcer Musculoskeletal Medical History: Reports Hx Arthritis Infectious Medical History: Denies: Hx Hepatitis Past Surgical History: Reports: Hx Cardiac Catheterization, Hx Coronary Stent, Hx Orthopedic Surgery. Denies: Hx Open Heart Surgery - Immunizations Hx Diphtheria, Pertussis, Tetanus Vaccination: No Review of Systems - Review of Systems Constitutional: See HPI Cardiovascular: See HPI Respiratory: See HPI Musculoskeletal: See HPI -: Yes All other systems reviewed and negative Physical Exam - Vital signs Vitals: Temp Pulse Resp BP Pulse Ox 98.1 F 63 22 H 122/74 94 12/31/19 10:47 12/31/19 10:47 12/31/19 10:47 12/31/19 10:47 12/31/19 10:47 - Notes Notes: This is an obese 64-year-old male who appears much older than his stated age in no acute distress. Vital signs reviewed, please refer to chart. Head is normocephalic, atraumatic. Pupils equal round, reactive to light. Neck is supple without meningismus. Heart is irregularly irregular. Lungs reveal expiratory wheezes throughout. Abdomen is soft, nontender, normoactive bowel sounds throughout. Extremities without cyanosis, clubbing. Posterior calves are nontender. She does have +2 pitting edema to the left lower extremity, +1 to the right. Peripheral pulses are equal. Skin is warm and dry. Patient is awake, alert, neurological exam is nonfocal. Course - Re-evaluation Re-evalutation: 12/31/19 14:14 Patient presents to the emergency department for evaluation. 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 Laboratory vesication's were ordered. Patient is troponin is unremarkable. His EKG shows no acute changes. He is given IV Lasix, Solu-Medrol, DuoNeb for his COPD. I will contact medicine for admission. Consultation for Dr. Henry will be placed. 12/31/19 15:[address] Barkley. He will accept the patient for admission. Consultation for Dr. Henry placed. - Vital Signs Vital signs: Temp Pulse Resp BP Pulse Ox 98.1 F 63 26 H 127/95 H 95 12/31/19 10:47 12/31/19 10:47 12/31/19 15:01 12/31/19 15:01 12/31/19 15:01 - Laboratory Result Diagrams: 12/31/19 11:30 12/31/19 11:30 Laboratory results interpreted by me: 12/31/19 12/31/19 12/31/19 11:30 11:30 11:30 Hgb 11.9 L Hct 35.8 L MCV 76 L MCH 25.3 L RDW 21.0 H Lymph % (Auto) 8.0 L Seg Neutrophils % 83.4 H Sodium 134.1 L Chloride 91 L Carbon Dioxide 34 H ALT 69 H NT-Pro-B Natriuret Pep 1290 H - Diagnostic Test Radiology reviewed: Reports reviewed Radiology results interpreted by me: 12/31/19 14:14 Chest X-Ray 12/31/19 10:58 IMPRESSION: Stable cardiomegaly. No acute findings. - EKG Interpretation by Me Additional EKG results interpreted by me: 12/31/19 14:14 Atrial fibrillation with a rate of 60 bpm. Normal axis, IVCD. Lateral T wave changes consistent with LVH versus ischemia. No significant change when compared to prior study of January 2019. Discharge - Discharge Clinical Impression: COPD (chronic obstructive pulmonary disease) Qualifiers: COPD type: COPD with acute exacerbation Qualified Code(s): J44.1 - Chronic obstructive pulmonary disease with (acute) exacerbation Congestive heart failure (CHF) Qualifiers: Heart failure chronicity: acute on chronic Condition: Stable Disposition: ADMITTED INPATIENT Admitting Provider: Rubia (Hospitalist) Unit Admitted: Medical Floor Referrals: LEONOR RENDON MD [Primary Care Provider] - Follow up as needed
[2019-12-31] MEDS ORDERED: ONDANSETRON HCL INJ/PF 4 MG/2 ML SDV IV PRN (15:46)
[2019-12-31] MEDS ORDERED: TEMAZEPAM 7.5 MG CAPSULE PO PRN (15:46)
[2019-12-31] MEDS ORDERED: IPRATROPIUM/ALBUTEROL 0.5-2.5 MG/3 ML AMPUL NEB PRN (15:46)
--- NOTE | 2019-12-31 16:09 | PDOC H&P ---
History of Present Illness Admission Date/PCP: 12/31/19 15:33 LEONOR RENDON MD Patient complains of: Shortness of breath associated with weight gain. History of Present Illness: LEONEL SCHULTZ is a 64 year old male with history of morbid obesity, hypertensio n, atrial fibrillation on Eliquis, COPD came to the emergency room with complaints of shortness of breath for the last several weeks. He is also complaining of weight gain. According to him is noncompliant with his p.o. medications at home. Work-up in the ER shows chest x-ray was normal study with a BNP elevated to 1920. Medical consult was called for diuresis for CHF exacerbation with possible underlying COPD exacerbation. Past Medical History Cardiac Medical History: Reports: Atrial Fibrillation, Coronary Artery Disease, Hyperlipidema, Hypertension Denies: Myocardial Infarction Pulmonary Medical History: Reports: Chronic Obstructive Pulmonary Disease (COPD) Denies: Asthma, Bronchitis, Pneumonia Neurological Medical History: Denies: Seizures GI Medical History: Denies: Hepatitis, Hiatal Hernia Musculoskeltal Medical History: Reports: Arthritis Hematology: Denies: Anemia, Sickle Cell Disease Past Surgical History Past Surgical History: Reports: Cardiac Catheterization, Coronary Stent, Orthopedic Surgery Social History Smoking Status: Former Smoker Electronic Cigarette use?: No Frequency of Alcohol Use: None Hx Recreational Drug Use: No Drugs: None Hx Prescription Drug Abuse: No - Advance Directive Resuscitation Status: Full Code Family History Family History: CAD - father Parental Family History Reviewed: Yes - Hypertension and heart disease. Children Family History Reviewed: Yes Sibling(s) Family History Reviewed.: Yes Medication/Allergy Home Medications: Apixaban [Eliquis] 5 mg PO BID 05/26/17 Diltiazem HCl [Cartia Xt] 240 mg PO DAILY 05/26/17 Omeprazole 40 mg PO DAILY 05/26/17 Simvastatin 20 mg PO DAILY 05/26/17 Tamsulosin HCl [Flomax] 0.4 mg PO DAILY 05/26/17 Zolpidem Tartrate 10 mg PO QHS 05/26/17 Albuterol Sulfate [Proair HFA Inhalation Aerosol 8.5 gm MDI] 1 puff IH Q4 PRN 02/24/19 Furosemide [Lasix] 40 mg PO BID 02/24/19 Isosorbide Mononitrate [Imdur 30 mg Tablet.er] 30 mg PO DAILY 06/15/19 Losartan Potassium [Cozaar 50 mg Tablet] 50 mg PO DAILY 06/15/19 Metolazone [Zaroxolyn 2.5 mg Tablet] 2.5 mg PO DAILY 06/15/19 Metoprolol Succinate [Toprol Xl 25 mg Tab.sr] 25 mg PO DAILY 06/15/19 Umeclidinium [place] [Incruse Ellipta] 1 puff IH DAILY 06/15/19 Tramadol HCl/Acetaminophen [Ultracet 37.5 mg/325 mg Tablet] 1 each PO TID 06/16/19 Allergies/Adverse Reactions: No Known Allergies Allergy (Verified 12/31/19 10:51) Review of Systems Constitutional: ABSENT: fatigue, fever(s), headache(s), weakness Eyes: ABSENT: visual disturbances Ears: ABSENT: hearing changes Nose, Mouth, and Throat: ABSENT: sore throat Cardiovascular: ABSENT: chest pain, orthropnea, palpitations Respiratory: PRESENT: dyspnea. ABSENT: cough, sputum Gastrointestinal: ABSENT: coffee ground emesis, dysphagia, heartburn, hematemesis Genitourinary: ABSENT: dysuria, hematuria Musculoskeletal: ABSENT: joint swelling Integumentary: ABSENT: rash, wounds Neurological: ABSENT: abnormal gait, abnormal speech, confusion, dizziness, focal weakness, syncope Psychiatric: ABSENT: anxiety, depression, homidical ideation, suicidal ideation Physical Exam Vital Signs: Temp Pulse Resp BP Pulse Ox 98.1 F 63 26 H 127/95 H 95 12/31/19 10:47 12/31/19 10:47 12/31/19 15:01 12/31/19 15:01 12/31/19 15:01 Intake & Output 12/30/19 12/31/19 01/01/20 06:59 06:59 06:59 Weight 141.8 kg General appearance: PRESENT: mild distress, obese Head exam: PRESENT: atraumatic Eye exam: PRESENT: PERRLA Mouth exam: PRESENT: moist, tongue midline Teeth exam: PRESENT: poor dentation Neck exam: PRESENT: JVD. ABSENT: carotid bruit, lymphadenopathy, thyromegaly Respiratory exam: PRESENT: decreased breath sounds Cardiovascular exam: PRESENT: RRR. ABSENT: diastolic murmur, rubs, systolic murmur GI/Abdominal exam: PRESENT: normal bowel sounds, soft. ABSENT: distended, guarding, mass, organolmegaly, rebound, tenderness Rectal exam: PRESENT: deferred Extremities exam: PRESENT: full ROM. ABSENT: calf tenderness, clubbing, pedal edema Neurological exam: PRESENT: alert, awake, oriented to person, oriented to place, oriented to time, oriented to situation, CN II-XII grossly intact. ABSENT: motor sensory deficit Psychiatric exam: PRESENT: appropriate affect, normal mood. ABSENT: homicidal ideation, suicidal ideation Results Laboratory Results: 12/31/19 11:30 12/31/19 11:30 12/31/19 12/31/19 12/31/19 11:30 11:30 12:30 WBC 7.8 RBC 4.69 Hgb 11.9 L Hct 35.8 L MCV 76 L MCH 25.3 L MCHC 33.1 RDW 21.0 H Plt Count 224 Seg Neutrophils % 83.4 H Sodium 134.1 L Potassium 3.6 Chloride 91 L Carbon Dioxide 34 H Anion Gap 9 BUN 18 Creatinine 0.67 Est GFR ( Amer) > 60 Glucose 105 Calcium 8.9 Total Bilirubin 0.7 AST 56 Alkaline Phosphatase 68 Total Protein 6.6 Albumin 3.9 Urine Color YELLOW Urine Appearance CLEAR Urine pH 6.0 Ur Specific [place] 1.015 Urine Protein NEGATIVE Urine Glucose (UA) NEGATIVE Urine Ketones NEGATIVE Urine Blood NEGATIVE Urine Nitrite NEGATIVE Ur Leukocyte Esterase NEGATIVE 12/31/19 11:30 Troponin I 0.019 NT-Pro-B Natriuret Pep 1290 H Impressions: Chest X-Ray 12/31/19 10:58 IMPRESSION: Stable cardiomegaly. No acute findings. Assessment and Plan - Diagnosis (1) COPD (chronic obstructive pulmonary disease) Qualifiers: COPD type: COPD with acute exacerbation Qualified Code(s): J44.1 - Chronic obstructive pulmonary disease with (acute) exacerbation Is this a current diagnosis for this admission?: Yes Plan: 12/31/2019-patient came in with end of increasing shortness of breath to be admitted to [facility] as an inpatient. Diagnosis will be COPD exacerbation. Started on oxygen 2 L nasal cannula and continue albuterol nebulizations. CT chest was requested further information GI prophylaxis initiated patient is already on Eliquis for atrial fibrillation. To check for home oxygen requirements. To request for a flutter valve therapy. (2) Congestive heart failure (CHF) Qualifiers: Heart failure chronicity: acute on chronic Is this a current diagnosis for this admission?: Yes Plan: 12/31/2019-patient came in with complaints of shortness of breath 1 of the differential is CHF exacerbation. Records from Dr. Henry office indicates preserved EF. Patient taking metolazone and furosemide at home. To start on IV furosemide 40 mg twice a day. To place him on fluid restriction 1500 cc/day. To continue metolazone. BNP is elevated plan is to closely monitor the BNP and weight on daily basis. (3) Atrial fibrillation Is this a current diagnosis for this admission?: No Plan: 12/31/2019 patient has history of paroxysmal atrial fibrillation and Eliquis. Plan is to continue the medication during the hospital stay. (4) HTN (hypertension) Is this a current diagnosis for this admission?: No Plan: The 1120-patient has history of chronic essential hypertension. Blood pressure in the ER is stable. Blood pressure in the ER is 127/95 plan is to resume losartan , started on IV furosemide 40 mg twice a day and to continue metolazone. (5) Diabetes mellitus Is this a current diagnosis for this admission?: No Plan: 12/31/2019-patient has history of type 2 diabetes mellitus. To put him on insulin sliding scale before meals and at bedtime and to check for hemoglobin A1c. At exercise weight loss lifestyle modifications discussed with the patient. (6) Morbid obesity Is this a current diagnosis for this admission?: No Plan: 12/31/2019 BMI is more than 40. Diet exercise weight loss lifestyle modifications discussed with the patient.
[2019-12-31] MEDS: PANTOPRAZOLE SODIUM 40 MG TABLET.DR PO SCH (16:38)
[2019-12-31] MEDS: ACETAMINOPHEN 325 MG TABLET PO PRN (16:41)
[2019-12-31 17:03] LABS: CREATINE KINASE MB 2.37 ng/mL (<4.55); TROPONIN I 0.012 ng/mL
--- NOTE | 2019-12-31 17:30 | EKG REPORT ---
SEVERITY:- ABNORMAL ECG - ATRIAL FIBRILLATION PROBABLE LVH WITH SECONDARY REPOL ABNRM : Confirmed by: Luca Lopez 31-Dec-2019 17:29:38
[2019-12-31] MEDS: APIXABAN 5 MG TABLET PO SCH (17:37)
[2019-12-31] MEDS ORDERED: INFLUENZA QUAD (6MOS+) 2019-20 VAC 0.5 ML SYR IM ONE (18:13)
[2019-12-31] MEDS ORDERED: TRAMADOL HCL 50 MG TABLET PO PRN (19:49)
[2019-12-31] MEDS: FUROSEMIDE INJ/PF 40 MG/4 ML SDV IV SCH (21:52)
[2019-12-31 22:31] LABS: CREATINE KINASE MB 2.02 ng/mL (<4.55)
[2019-12-31 22:38] LABS: TROPONIN I < 0.012 ng/mL
[2020-01-01] MEDS: ACETAMINOPHEN 325 MG TABLET PO PRN ×2 (01:13→07:58)
[2020-01-01] MEDS ORDERED: ZOLPIDEM TARTRATE 5 MG TABLET PO ONE (01:15)
[2020-01-01] MEDS ORDERED: TAMSULOSIN HCL 0.4 MG CAP.SR.24H PO ONE (02:00)
[2020-01-01] MEDS ORDERED: POTASSIUM CHLORIDE 10 MEQ TABLET.ER PO ONE (02:00)
[2020-01-01] MEDS ORDERED: DEXTROSE 50%-WATER SYRINGE 25 GM/50 ML DOSE IV PRN (05:00)
[2020-01-01] MEDS ORDERED: DEXTROSE 40% GEL 15 GM TUBE PO PRN (05:00)
[2020-01-01] MEDS ORDERED: DEXTROSE 50%-WATER SYRINGE 12.5 GM/25 ML DOSE IV PRN (05:00)
[2020-01-01] MEDS ORDERED: DEXTROSE 40% GEL 15 GM TUBE X 2 PO PRN (05:00)
[2020-01-01] MEDS ORDERED: GLUCAGON,HUMAN RECOMB 1 MG INJ IM PRN (05:00)
[2020-01-01 05:31] LABS: ABSOLUTE LYMPHOCYTES (AUTO) 0.5 10^3/uL (0.5-4.7); ABSOLUTE MONOCYTES (AUTO) 0.2 10^3/uL (0.1-1.4); ABSOLUTE NEUT (AUTO) 5.2 10^3/uL (1.7-8.2); BASOPHILS % (AUTO) 0.1 % (0-2); HEMATOCRIT 34.7 % (37.9-51.0); HEMOGLOBIN 11.7 g/dL (13.5-17.0); INTERNATIONAL RATION (INR) 1.14; LYMPHOCYTES % (AUTO) 8.3 % (13-45); MEAN CORPUSCULAR HEMOGLOBIN 25.4 pg (27.0-33.4); MEAN CORPUSCULAR HGB CONC 33.6 g/dL (32.0-36.0); MEAN CORPUSCULAR VOLUME 76 fl (80-97); MONOCYTES % (AUTO) 2.8 % (3-13); PLATELET COUNT 233 10^3/uL (150-450); PROTHROMBIN TIME 14.7 SEC (11.4-15.4); RED CELL DISTRIBUTION WIDTH 21.4 % (11.5-14.0); SEGMENTED NEUTROPHILS % (AUTO) 88.8 % (42-78); TOTAL CELLS COUNTED % (AUTO) 100 %; WHITE BLOOD COUNT 5.8 10^3/uL (4.0-10.5)
[2020-01-01 05:48] LABS: ALBUMIN 4.2 g/dL (3.5-5.0); ALKALINE PHOSPHATASE 56 U/L (38-126); ANION GAP 11 (5-19); ASPARTATE AMINO TRANSFERASE 44 U/L (17-59); BILIRUBIN,TOTAL 0.7 mg/dL (0.2-1.3); BLOOD UREA NITROGEN 20 mg/dL (7-20); CALCIUM 9.1 mg/dL (8.4-10.2); CARBON DIOXIDE 30 mmol/L (22-30); CHLORIDE 93 mmol/L (98-107); CREATINE KINASE 89 U/L (55-170); GLUCOSE 137 mg/dL (75-110); POTASSIUM 3.4 mmol/L (3.6-5.0); TOTAL PROTEIN 6.4 g/dL (6.3-8.2); TRIGLYCERIDES 81 mg/dL (<150)
[2020-01-01 05:59] LABS: DIRECT LDL 83 mg/dL (<100)
[2020-01-01 06:01] LABS: CREATINE KINASE MB 1.89 ng/mL (<4.55); TROPONIN I 0.012 ng/mL
[2020-01-01] MEDS: PANTOPRAZOLE SODIUM 40 MG TABLET.DR PO SCH (06:23)
[2020-01-01] MEDS ORDERED: ALBUTEROL SULFATE HFA (90 MCG/PUFF) 8 GM MDI (1 MDI/ER DISP) IH PRN (07:40)
[2020-01-01] MEDS: INSULIN LISPRO 100 UNIT/ML 3 ML VIAL SUBCUT SCH ×4 (08:00→22:22)
[2020-01-01] MEDS ORDERED: (PENDING PHARMACY ID) (Tramadol Hcl/Acetaminophen [Ultracet 37.5 Mg/325 Mg Tablet] 1 EACH) PO SCH (10:00)
[2020-01-01] MEDS ORDERED: ENOXAPARIN SODIUM INJ 40 MG/0.4 ML DISP.SYRIN SUBCUT SCH (10:00)
[2020-01-01] MEDS ORDERED: (PENDING PHARMACY ID) (Potassium Chloride [Potassium Chloride] 40 MEQ) PO SCH (10:00)
[2020-01-01] MEDS ORDERED: (PENDING PHARMACY ID) (Simvastatin [Simvastatin] 20 MG) PO SCH (10:00)
[2020-01-01] MEDS ORDERED: (PENDING PHARMACY ID) (Diltiazem Hcl [Cartia Xt] 240 MG) PO SCH (10:00)
[2020-01-01] MEDS: METOPROLOL SUCCINATE 25 MG TAB.SR.24H PO SCH (10:15)
[2020-01-01] MEDS: POTASSIUM CHLORIDE 10 MEQ TABLET.ER PO SCH ×2 (10:16→17:32)
[2020-01-01] MEDS: LOSARTAN POTASSIUM 50 MG TABLET PO SCH (10:16)
[2020-01-01] MEDS: APIXABAN 5 MG TABLET PO SCH ×2 (10:16→17:32)
[2020-01-01] MEDS: METOLAZONE 2.5 MG TABLET PO SCH (10:17)
[2020-01-01] MEDS: ISOSORBIDE MONONITRATE 30 MG TAB.ER.24H PO SCH (10:18)
[2020-01-01] MEDS: DILTIAZEM HCL 240 MG CAPSULE.CR PO SCH (10:18)
[2020-01-01] MEDS: TAMSULOSIN HCL 0.4 MG CAP.SR.24H PO SCH (10:18)
[2020-01-01] MEDS: FUROSEMIDE INJ/PF 40 MG/4 ML SDV IV SCH ×2 (10:23→22:21)
--- NOTE | 2020-01-01 10:43 | RADIOLOGY REPORT (SQ) ---
EXAM DESCRIPTION: CTA CHEST COMPLETED DATE/TIME: 01/01/2020 9:12 am REASON FOR STUDY: r/o PE COMPARISON: 05/23/2012 TECHNIQUE: CT scan of the chest performed using helical scanning technique with dynamic intravenous contrast injection. Images reviewed with lung, soft tissue and bone windows. Reconstructed coronal and sagittal MPR images reviewed. Additional 3 dimensional post-processing performed to develop Maximal Intensity Projection images (TX P). All images stored on PACS. All CT scanners at this facility use dose modulation, iterative reconstruction, and/or weight based d osing when appropriate to reduce radiation dose to as low as reasonably achievable (ALARA). [facility]: Dose Right [facility]: CareDose [facility]: Dose Right [facility]: Teradose 4D [facility]: BioTeSys CONTRAST TYPE AND DOSE: contrast/concentration: Isovue 350.00 mg/ml; Total Contrast Delivered: 68.0 ml; Total Saline Delivered: 80.0 ml Contrast bolus optimized for the pulmonary arteries. Not diagnostic for the aorta. RENAL FUNCTION: GFR > 60. RADIATION DOSE: CT Rad equipment meets quality standard of care and radiation dose reduction techniq ues were employed. CTDIvol: 15.7 - 22.5 mGy. DLP: 716 mGy-cm. . LIMITATIONS: None. FINDINGS: LUNGS AND PLEURA: No masses, infiltrates, or pneumothorax. No pleural effusions or pleura l calcifications. AORTA AND GREAT VESSELS: No aneurysm. Contrast bolus not optimized for the aorta. HEART: No pericardial effusion. Cardiomegaly. Moderate to marked coronary artery calcifications. PULMONARY ARTERIES: No emboli visualized in the main pulmonary arteries or the segmental branches. HILAR AND MEDIASTINAL STRUCTURES: No identified masses or abnormal nodes. HARDWARE: None in the chest. UPPER ABDOMEN: No significant findings. Limited exam. THYROID AND OTHER SOFT TISSUES: No masses. No adenopathy. BONES: No acute or significant finding. 3D MIPS: Confirm above findings. OTHER: No other significant finding. IMPRESSION: No PE. No acute findings in the chest. COMMENT: Quality ID # [id number]: Final reports with documentation of one or more dose reduction techniques (e.g., Automated exposure control, adjustment of the mA and/or kV according to patient size, use of iterative reconstruction technique) TECHNICAL DOCUMENTATION: JOB ID: [id number] 2010 [employer]- All Rights Reserved Reading location - IP/workstation name: [email or web address]
--- NOTE | 2020-01-01 11:39 | PDOC PROGRESS REPORT ---
Subjective Progress Note for:: 01/01/20 Subjective:: 64 year old male with history of morbid obesity, hypertension, atrial fibrillation on Eliquis, COPD came to the emergency room with complaints of shortness of breath for the last several weeks. He is also complaining of weight gain. According to him is noncompliant with his p.o. medications at home. Work-up in the ER shows chest x-ray was normal study with a BNP elevated to 1920. Medical consult was called for diuresis for CHF exacerbation with possible underlying COPD exacerbation. 01/01/[id number]-old with history of hypertension, atrial fibrillation on Eliquis, COPD, morbid obesity admitted for increasing shortness of breath. Patient is noncompliant with his medications. CT of the chest was done negative for acute pathology. Admission BNP is 1921.today's BNP is 1100. pulse ox is 94% on room air. Comfortable in the chair communicating well. Reason For Visit: CHF EXACERBATION Physical Exam Vital Signs: Temp Pulse Resp BP Pulse Ox 97.9 F 73 16 154/86 H 93 01/01/20 08:00 01/01/20 08:06 01/01/20 08:06 01/01/20 08:00 01/01/20 08:06 Intake & Output 12/31/19 01/01/20 01/02/20 06:59 06:59 06:59 Intake Total 240 Balance 240 Weight 142.4 kg General appearance: PRESENT: no acute distress, morbidly obese Head exam: PRESENT: atraumatic Eye exam: PRESENT: PERRLA Ear exam: PRESENT: normal external ear exam Mouth exam: PRESENT: moist, tongue midline Teeth exam: PRESENT: poor dentation Neck exam: ABSENT: carotid bruit, JVD, lymphadenopathy, thyromegaly Respiratory exam: PRESENT: decreased breath sounds Cardiovascular exam: PRESENT: RRR. ABSENT: diastolic murmur, rubs, systolic murmur GI/Abdominal exam: PRESENT: normal bowel sounds, soft. ABSENT: distended, guarding, mass, organolmegaly, rebound, tenderness Rectal exam: PRESENT: deferred Extremities exam: PRESENT: full ROM. ABSENT: calf tenderness, clubbing, pedal edema Neurological exam: PRESENT: alert, awake, oriented to person, oriented to place, oriented to time, oriented to situation, CN II-XII grossly intact. ABSENT: motor sensory deficit Psychiatric exam: PRESENT: appropriate affect, normal mood. ABSENT: homicidal ideation, suicidal ideation Results Laboratory Results: 01/01/20 04:11 01/01/20 04:11 12/31/19 12/31/19 12/31/19 11:30 11:30 12:30 WBC 7.8 RBC 4.69 Hgb 11.9 L Hct 35.8 L MCV 76 L MCH 25.3 L MCHC 33.1 RDW 21.0 H Plt Count 224 Seg Neutrophils % 83.4 H Sodium 134.1 L Potassium 3.6 Chloride 91 L Carbon Dioxide 34 H Anion Gap 9 BUN 18 Creatinine 0.67 Est GFR ( Amer) > 60 Glucose 105 Calcium 8.9 Magnesium Total Bilirubin 0.7 AST 56 Alkaline Phosphatase 68 Total Protein 6.6 Albumin 3.9 Triglycerides Cholesterol LDL Cholesterol Direct VLDL Cholesterol HDL Cholesterol Urine Color YELLOW Urine Appearance CLEAR Urine pH 6.0 Ur Specific [place] 1.015 Urine Protein NEGATIVE Urine Glucose (UA) NEGATIVE Urine Ketones NEGATIVE Urine Blood NEGATIVE Urine Nitrite NEGATIVE Ur Leukocyte Esterase NEGATIVE 01/01/20 01/01/20 04:11 04:11 WBC 5.8 RBC 4.60 Hgb 11.7 L Hct 34.7 L MCV 76 L MCH 25.4 L MCHC 33.6 RDW 21.4 H Plt Count 233 Seg Neutrophils % 88.8 H Sodium 134.0 L Potassium 3.4 L Chloride 93 L Carbon Dioxide 30 Anion Gap 11 BUN 20 Creatinine 0.56 Est GFR ( Amer) > 60 Glucose 137 H Calcium 9.1 Magnesium 2.1 Total Bilirubin 0.7 AST 44 Alkaline Phosphatase 56 Total Protein 6.4 Albumin 4.2 Triglycerides 81 Cholesterol 136.90 LDL Cholesterol Direct 83 VLDL Cholesterol 16.0 HDL Cholesterol 51 Urine Color Urine Appearance Urine pH Ur Specific [place] Urine Protein Urine Glucose (UA) Urine Ketones Urine Blood Urine Nitrite Ur Leukocyte Esterase 12/31/19 12/31/19 12/31/19 11:30 16:15 16:15 Creatine Kinase 112 CK-MB (CK-2) 2.37 Troponin I 0.019 0.012 NT-Pro-B Natriuret Pep 1290 H 12/31/19 12/31/19 01/01/20 21:51 21:51 04:11 Creatine Kinase 101 89 CK-MB (CK-2) 2.02 Troponin I < 0.012 NT-Pro-B Natriuret Pep 01/01/20 04:11 Creatine Kinase CK-MB (CK-2) 1.89 Troponin I 0.012 NT-Pro-B Natriuret Pep 1100 H Impressions: Chest X-Ray 12/31/19 10:58 IMPRESSION: Stable cardiomegaly. No acute findings. Chest/Abdomen CTA 01/01/20 07:00 IMPRESSION: No PE. No acute findings in the chest. Assessment and Plan - Diagnosis (1) COPD (chronic obstructive pulmonary disease) Qualifiers: COPD type: COPD with acute exacerbation Qualified Code(s): J44.1 - Chronic obstructive pulmonary disease with (acute) exacerbation Is this a current diagnosis for this admission?: Yes Plan: 12/31/2019-patient came in with end of increasing shortness of breath to be admitted to [facility] as an inpatient. Diagnosis will be COPD exacerbation. Started on oxygen 2 L nasal cannula and continue albuterol nebulizations. CT chest was requested further information GI prophylaxis initiated patient is already on Eliquis for atrial fibrillation. To check for home oxygen requirements. To request for a flutter valve therapy. 01/01/2020-patient admitted with COPD exacerbation. CT of the chest was negative for pneumonia negative for pulmonary edema negative for pleural effusions. Patient is receiving scheduled and as needed nebulizations. Pulse ox today is 94% on room air. COPD exacerbation is resolving. (2) Congestive heart failure (CHF) Qualifiers: Heart failure chronicity: acute on chronic Is this a current diagnosis for this admission?: Yes Plan: 12/31/2019-patient came in with complaints of shortness of breath 1 of the differential is CHF exacerbation. Records from Dr. Henry office indicates preserved EF. Patient taking metolazone and furosemide at home. To start on IV furosemide 40 mg twice a day. To place him on fluid restriction 1500 cc/day. To continue metolazone. BNP is elevated plan is to closely monitor the BNP and weight on daily basis. 06/02/2020-patient admitted with planes of shortness of breath may be secondary to CHF exacerbation. CTA of the chest is negative for pulmonary edema. BNP improved to 1110 today. Plan is to continue the IV diuresis. He is going to be on fluid restriction 1500 cc/day. (3) Atrial fibrillation Is this a current diagnosis for this admission?: No Plan: 12/31/2019 patient has history of paroxysmal atrial fibrillation and Eliquis. Plan is to continue the medication during the hospital stay. 01/01/2020-patient has history of paroxysmal atrial fibrillation on Eliquis. On examination heart is in the sinus rhythm. (4) HTN (hypertension) Is this a current diagnosis for this admission?: No Plan: 12/31/19-patient has history of chronic essential hypertension. Blood pressure in the ER is stable. Blood pressure in the ER is 127/95 plan is to resume losartan , started on IV furosemide 40 mg twice a day and to continue metolazone. 12/21/19-patient has history of chronic essential hypertension. Noncompliant with her medications. Blood pressure is 137/73 improved. Plan is to continue the IV Lasix 40 mg twice a day and metolazone. (5) Diabetes mellitus Is this a current diagnosis for this admission?: No Plan: 12/31/2019-patient has history of type 2 diabetes mellitus. To put him on insulin sliding scale before meals and at bedtime and to check for hemoglobin A1c. At exercise weight loss lifestyle modifications discussed with the patient. 01/01/2020-hemoglobin A1c 6.4. Patient has history of type 2 diabetes mellitus. Plan is to continue insulin sliding scale before meals and at bedtime. (6) Morbid obesity Is this a current diagnosis for this admission?: No Plan: 12/31/2019 BMI is more than 40. Diet exercise weight loss lifestyle modifications discussed with the patient.
[2020-01-01] MEDS: BUTALB/ACETAMINOPHEN/CAFFEINE 1 TAB EACH PO PRN ×2 (15:08→22:26)
[2020-01-01] MEDS: UMECLIDINIUM BROMIDE 62.5 MCG/DOSE IH SCH (15:08)
[2020-01-01] MEDS: FLUTICASONE/VILANTEROL 200-25 MCG/DOSE IH SCH (15:09)
--- NOTE | 2020-01-01 18:39 | CDI QUERY ---
<RAMYA CANNON - Last Filed: 01/01/20 18:38> CDI Query CDI Review: Dear Provider: To better reflect your patients severity of illness, morbidity, and resource utilization Please specify and document in the Progress Notes and Discharge Summary if you are monitoring / treating / evaluating any of the following conditions: Query Clinical indicators Please specify the type of CHF: Acute on chronic Diastolic CHF Acute on chronic combined diastolic / systolic CHF Other CHF Unable to determine Per Progress Notes: Congestive heart failure (CHF) Qualifiers: Heart failure chronicity: acute on chronic Is this a current diagnosis for this admission?: Yes Plan: 12/31/2019-patient came in with complaints of shortness of breath 1 of the differential is CHF exacerbation. Records from Dr. Henry office indicates preserved EF. Patient taking metolazone and furosemide at home. To start on IV furosemide 40 mg twice a day. To place him on fluid restriction 1500 cc/day. The terms probable, suspected, likely, possible or still to be ruled out may be used if you are unable to determine the exact nature of a condition. Thank you, Clinical Documentation Physician Advisors AMANDEEP Espitia RN, BSN RN Office [phone] Office [phone] <CARLINE LOTT S - Last Filed: 01/02/20 07:37> CDI Query Agree with Query: Yes
[2020-01-01] MEDS ORDERED: ZOLPIDEM TARTRATE 5 MG TABLET PO SCH ×2 (22:00)
[2020-01-01] MEDS ORDERED: SIMVASTATIN 10 MG TABLET PO SCH (22:00)
[2020-01-01] MEDS ORDERED: (PENDING PHARMACY ID) (Zolpidem Tartrate [Zolpidem Tartrate] 10 MG) PO SCH (22:00)
[2020-01-02] MEDS: BUTALB/ACETAMINOPHEN/CAFFEINE 1 TAB EACH PO PRN (04:29)
[2020-01-02] MEDS ORDERED: PANTOPRAZOLE SODIUM 40 MG TABLET.DR PO SCH (06:00)
[2020-01-02 07:16] LABS: INTERNATIONAL RATION (INR) 1.16; PROTHROMBIN TIME 14.9 SEC (11.4-15.4)
--- NOTE | 2020-01-02 08:06 | XCELERA REPORT ---
[address] [address] Transthoracic Echocardiogram Report Name: LEONEL SCHULTZ Age: 64 yrs Gender: Male : 1955 Patient Status: Inpatient Patient Location: [facility]^A Study Date: 01/01/2020 02:13 PM Height: 72 in Weight: 312 lb BSA: 2.6 m2 Reason For Study: chf Ordering Physician: CARLINE LOTT Performed By: Alexandrea Cosme Interpretation Summary Difficult study due to pt. body habitus and inability to cover window for better screen visualization. There is mild concentric left ventricular hypertrophy. LV is at least moderately dilated. Left ventricular systolic function is normal. LV EF is 60-65%. Diastolic function was not adequately assessed. Regional wall motion abnormalities cannot be excluded due to limited visualization. Mild biatrial enlargement. Trace MR, trace TR, mild AI. Cannot completely rule out a degree of aortic stenosis. Mildly diated aortic root at 4.1 cm. Small, hemodynamically insignificant anterior pericardial effusion. MMode/2D Measurements & Calculations RVDd: 3.5 cm LVIDd: 6.8 cm FS: 18.5 % Ao root diam: 4.1 cm IVSd: 1.4 cm LVIDs: 5.5 cm EDV(Teich): 236.1 ml LVPWd: 1.4 cm ESV(Teich): 148.0 ml Ao root area: 13.1 cm2 LA dimension: 4.0 cm EF(Teich): 37.3 % LVOT diam: 2.1 cm LVOT area: 3.6 cm2 Doppler Measurements & Calculations MV P1/2t max daiana: Ao V2 max: AI max daiana: LV V1 max P.0 cm/sec 131.2 cm/sec 194.6 cm/sec 5.5 mmHg MV P1/2t: 54.0 msec Ao max PG: AI max PG: LV V1 mean PG: MVA(P1/2t): 4.1 cm2 13.7 mmHg 15.3 mmHg 3.5 mmHg MV dec slope: Ao V2 mean: AI dec slope: LV V1 max: 187.4 cm/sec 73.9 cm/sec2 117.0 cm/sec 645.3 cm/sec2 Ao mean PG: AI P1/2t: LV V1 mean: 16.6 mmHg 770.9 msec 86.0 cm/sec Ao V2 VTI: 52.8 cm LV V1 VTI: 26.3 cm JACOB(I,D): 1.8 cm2 JACOB(V,D): 3.2 cm2 SV(LVOT): 93.7 ml PA V2 max: TR max daiana: AV P1/2t-pr_phl: 104.7 cm/sec 241.5 cm/sec 846.2 msec PA max PG: TR max P.4 mmHg 23.3 mmHg MV P1/2t-pr_phl: 54.0 msec Left Ventricle There is mild concentric left ventricular hypertrophy. LV is at least moderately dilated. Left ventricular systolic function is normal. LV EF is 60- 65%. Diastolic function was not adequately assessed. Regional wall motion abnormalities cannot be excluded due to limited visualization. Right Ventricle The right ventricle is grossly normal size. Atria The right atrium is mildly dilated. The left atrium is mildly dilated. Mitral Valve The mitral valve is normal in structure and function. There is a trace amount of mitral regurgitation. Aortic Valve The aortic valve is not well visualized secondary to technical limitations. The aortic valve is sclerotic, but shows no functional abnormality. Cannot completely rule out a degree of stenosis, doppler interrogation of the valve was inadequate. There is a mild amount of aortic regurgitation. Tricuspid Valve The tricuspid is normal in structure and function. There is a trace amount of tricuspid regurgitation. Pulmonic Valve The pulmonic valve is normal in structure and function. Great Vessels The aortic root is mildly dilated. Aortic root measures 4.1 cm. Effusions Small pericardial effusion. There are no echocardiographic indications of cardiac tamponade. : CARLINE LOTT Antonio
[2020-01-02] MEDS: INSULIN LISPRO 100 UNIT/ML 3 ML VIAL SUBCUT SCH (08:41)
[2020-01-02] MEDS: LOSARTAN POTASSIUM 50 MG TABLET PO SCH (09:46)
[2020-01-02] MEDS: METOLAZONE 2.5 MG TABLET PO SCH (09:47)
[2020-01-02] MEDS: DILTIAZEM HCL 240 MG CAPSULE.CR PO SCH (09:47)
[2020-01-02] MEDS: TAMSULOSIN HCL 0.4 MG CAP.SR.24H PO SCH (09:47)
[2020-01-02] MEDS: APIXABAN 5 MG TABLET PO SCH (09:47)
[2020-01-02] MEDS: METOPROLOL SUCCINATE 25 MG TAB.SR.24H PO SCH (09:47)
[2020-01-02] MEDS: POTASSIUM CHLORIDE 10 MEQ TABLET.ER PO SCH (09:47)
[2020-01-02] MEDS: ISOSORBIDE MONONITRATE 30 MG TAB.ER.24H PO SCH (09:47)
[2020-01-02] MEDS: UMECLIDINIUM BROMIDE 62.5 MCG/DOSE IH SCH (09:48)
[2020-01-02] MEDS: FUROSEMIDE INJ/PF 40 MG/4 ML SDV IV SCH (09:48)
[2020-01-02] MEDS: FLUTICASONE/VILANTEROL 200-25 MCG/DOSE IH SCH (09:48)
[2020-01-02 11:29] VITALS: BP 138/79
--- NOTE | 2020-01-02 11:41 | PDOC DISCHARGE SUMMARY ---
Impression - Admit/DC Date/PCP Admission Date/Primary Care Provider: 12/31/19 15:33 LEONOR RENDON MD Discharge Date: 01/02/20 - Discharge Diagnosis (1) COPD (chronic obstructive pulmonary disease) Is this a current diagnosis for this admission?: Yes (2) Congestive heart failure (CHF) Is this a current diagnosis for this admission?: Yes (3) Atrial fibrillation Is this a current diagnosis for this admission?: No (4) HTN (hypertension) Is this a current diagnosis for this admission?: No (5) Diabetes mellitus Is this a current diagnosis for this admission?: No (6) Morbid obesity Is this a current diagnosis for this admission?: No - Assessment Summary: (1) COPD (chronic obstructive pulmonary disease) Qualifiers: COPD type: COPD with acute exacerbation Qualified Code(s): J44.1 - Chronic obstructive pulmonary disease with (acute) exacerbation Is this a current diagnosis for this admission?: Yes Plan: 12/31/2019-patient came in with end of increasing shortness of breath to be admitted to [facility] as an inpatient. Diagnosis will be COPD exacerbation. Started on oxygen 2 L nasal cannula and continue albuterol nebulizations. CT chest was requested further information GI prophylaxis initiated patient is already on Eliquis for atrial fibrillation. To check for home oxygen requirements. To request for a flutter valve therapy. 01/01/2020-patient admitted with COPD exacerbation. CT of the chest was negative for pneumonia negative for pulmonary edema negative for pleural effusions. Patient is receiving scheduled and as needed nebulizations. Pulse ox today is 94% on room air. COPD exacerbation is resolving. 01/02/2020-patient has history of COPD came in with COPD exacerbation resolving. Pulse ox today is 95% on room air. No need for home oxygen requirements. (2) Congestive heart failure (CHF) Qualifiers: Heart failure chronicity: acute on chronic Is this a current diagnosis for this admission?: Yes Plan: 12/31/2019-patient came in with complaints of shortness of breath 1 of the differential is CHF exacerbation. Records from Dr. Henry office indicates preserved EF. Patient taking metolazone and furosemide at home. To start on IV furosemide 40 mg twice a day. To place him on fluid restriction 1500 cc/day. To continue metolazone. BNP is elevated plan is to closely monitor the BNP and weight on daily basis. 01/01/2020-patient admitted with planes of shortness of breath may be secondary to CHF exacerbation. CTA of the chest is negative for pulmonary edema. BNP improved to 1110 today. Plan is to continue the IV diuresis. He is going to be on fluid restriction 1500 cc/day. 01/02/2020-echocardiogram was done EF is more than 65%. Unable to assess the diastolic dysfunction because of atrial fibrillation. Most likely patient has a chronic diastolic heart failure. (3) Atrial fibrillation Is this a current diagnosis for this admission?: No Plan: 12/31/2019 patient has history of paroxysmal atrial fibrillation and Eliquis. Plan is to continue the medication during the hospital stay. 01/01/2020-patient has history of paroxysmal atrial fibrillation on Eliquis. On examination heart is in the sinus rhythm. 01/02/20-patient has history of chronic atrial fibrillation, Eliquis is continued during the hospital stay and patient is advised to continue Eliquis at home. (4) HTN (hypertension) Is this a current diagnosis for this admission?: No Plan: 01/01/20-patient has history of chronic essential hypertension. Blood pressure in the ER is stable. Blood pressure in the ER is 127/95 plan is to resume losartan , started on IV furosemide 40 mg twice a day and to continue metolazone. 01/01/20-patient has history of chronic essential hypertension. Noncompliant with her medications. Blood pressure is 137/73 improved. Plan is to continue the IV Lasix 40 mg twice a day and metolazone. 01/02/2020-blood pressure today is 125/88. Stable. Advised to be compliant with Lasix and metolazone. (5) Diabetes mellitus Is this a current diagnosis for this admission?: No Plan: 12/31/2019-patient has history of type 2 diabetes mellitus. To put him on insulin sliding scale before meals and at bedtime and to check for hemoglobin A1c. At exercise weight loss lifestyle modifications discussed with the patient. 01/01/2020-hemoglobin A1c 6.4. Patient has history of type 2 diabetes mellitus. Plan is to continue insulin sliding scale before meals and at bedtime. 01/02/2020-blood sugar today is 97. Stable. Patient advised to be compliant with his medications. (6) Morbid obesity Is this a current diagnosis for this admission?: No Plan: 12/31/2019 BMI is more than 40. Diet exercise weight loss lifestyle modifications discussed with the patient. - Additional Information Resuscitation Status: Do Not Resuscitate Discharge Diet: Cardiac Discharge Activity: Activity As Tolerated, Keep Legs Elevated, Weigh Daily Referrals: LEONOR RENDON MD [Primary Care Provider] - 01/08/20 1:45 pm BETTY HENRY MD [ACTIVE [employer]ISIONAL [employer]AFF] - 01/19/20 2:45 pm Home Medications: Apixaban [Eliquis] 5 mg PO BID 05/26/17 Diltiazem HCl [Cartia Xt] 240 mg PO DAILY 05/26/17 Omeprazole 40 mg PO DAILY 05/26/17 Simvastatin 20 mg PO DAILY 05/26/17 Tamsulosin HCl [Flomax] 0.4 mg PO DAILY 05/26/17 Zolpidem Tartrate 10 mg PO QHS 05/26/17 Albuterol Sulfate [Proair HFA Inhalation Aerosol 8.5 gm MDI] 2 puff IH Q4HP PRN 02/24/19 Furosemide [Lasix] 20 mg PO QAM 02/24/19 Isosorbide Mononitrate [Imdur 30 mg Tablet.er] 30 mg PO DAILY 06/15/19 Losartan Potassium [Cozaar 50 mg Tablet] 25 mg PO DAILY 06/15/19 Metolazone [Zaroxolyn 2.5 mg Tablet] 2.5 mg PO DAILY 06/15/19 Metoprolol Succinate [Toprol Xl 25 mg Tab.sr] 25 mg PO DAILY 06/15/19 Umeclidinium Bath [Incruse Ellipta] 1 puff IH DAILY 06/15/19 Tramadol HCl/Acetaminophen [Ultracet 37.5 mg/325 mg Tablet] 1 each PO TID 06/16/19 Budesonide/Formoterol Fumarate [Symbicort HFA 160-4.5 mcg Inhaler 6 gm] 2 puff IH BID 12/31/19 Potassium Chloride 40 meq PO BID 12/31/19 Apixaban [Eliquis 5 mg Tablet] 5 mg PO BID tablet 01/02/20 History of Present Illiness History of Present Illness: LEONEL SCHULTZ is a 64 year old male with history of morbid obesity, hypertension, atrial fibrillation on Eliquis, COPD came to the emergency room with complaints of shortness of breath for the last several weeks. He is also complaining of weight gain. According to him is noncompliant with his p.o. medications at home. Work-up in the ER shows chest x-ray was normal study with a BNP elevated to 1920. Medical consult was called for diuresis for CHF exacerbation with possible underlying COPD exacerbation. Hospital Course Hospital Course: 64 year old male with history of morbid obesity, hypertension, atrial fibrillation on Eliquis, COPD came to the emergency room with complaints of shortness of breath for the last several weeks. He is also complaining of weight gain. According to him is noncompliant with his p.o. medications at home. Work-up in the ER shows chest x-ray was normal study with a BNP elevated to 1920. Medical consult was called for diuresis for CHF exacerbation with possible underlying COPD exacerbation. [id number] male with history of atrial fibrillation on Eliquis, COPD, morbid obesity, hypertension admitted mated with shortness of breath. Echocardiogram was done EF is 65%. Unable to assess the diastolic dysfunction because of the atrial fibrillation. Most likely patient has underlying chronic diastolic heart failure. Physical Exam Vital Signs: Temp Pulse Resp BP Pulse Ox 98.2 F 75 16 138/79 H 95 01/02/20 11:29 01/02/20 11:29 01/02/20 11:29 01/02/20 07:28 01/02/20 11:29 Intake & Output 01/01/20 01/02/20 01/03/20 06:59 06:59 06:59 Intake Total 240 950 Balance 240 950 Weight 142.4 kg 139.2 kg General appearance: PRESENT: no acute distress, morbidly obese Head exam: PRESENT: atraumatic Eye exam: PRESENT: PERRLA Mouth exam: PRESENT: moist, tongue midline Teeth exam: PRESENT: poor dentation Neck exam: ABSENT: carotid bruit, JVD, lymphadenopathy, thyromegaly Respiratory exam: PRESENT: decreased breath sounds Cardiovascular exam: PRESENT: +S1, +S2 GI/Abdominal exam: PRESENT: normal bowel sounds, soft. ABSENT: distended, guarding, mass, organolmegaly, rebound, tenderness Rectal exam: PRESENT: deferred Neurological exam: PRESENT: alert, awake, oriented to person, oriented to place, oriented to time, oriented to situation, CN II-XII grossly intact. ABSENT: motor sensory deficit Psychiatric exam: PRESENT: appropriate affect, normal mood. ABSENT: homicidal ideation, suicidal ideation Results Laboratory Results: WBC 5.8 10^3/uL (4.0-10.5) 01/01/20 04:11 RBC 4.60 10^6/uL (4.35-5.55) 01/01/20 04:11 Hgb 11.7 g/dL (13.5-17.0) L 01/01/20 04:11 Hct 34.7 % (37.9-51.0) L 01/01/20 04:11 MCV 76 fl (80-97) L 01/01/20 04:11 MCH 25.4 pg (27.0-33.4) L 01/01/20 04:11 MCHC 33.6 g/dL (32.0-36.0) 01/01/20 04:11 RDW 21.4 % (11.5-14.0) H 01/01/20 04:11 Plt Count 233 10^3/uL (150-450) 01/01/20 04:11 Lymph % (Auto) 8.3 % (13-45) L 01/01/20 04:11 [place] % (Auto) 2.8 % (3-13) L 01/01/20 04:11 Eos % (Auto) 0.0 % (0-6) 01/01/20 04:11 Baso % (Auto) 0.1 % (0-2) 01/01/20 04:11 Absolute Neuts (auto) 5.2 10^3/uL (1.7-8.2) 01/01/20 04:11 Absolute Lymphs (auto) 0.5 10^3/uL (0.5-4.7) 01/01/20 04:11 Absolute Monos (auto) 0.2 10^3/uL (0.1-1.4) 01/01/20 04:11 Absolute Eos (auto) 0.0 10^3/uL (0.0-0.6) 01/01/20 04:11 Absolute Basos (auto) 0.0 10^3/uL (0.0-0.2) 01/01/20 04:11 Seg Neutrophils % 88.8 % (42-78) H 01/01/20 04:11 PT 14.9 SEC (11.4-15.4) 01/02/20 06:23 INR 1.16 01/02/20 06:23 Sodium 134.0 mmol/L (137-145) L 01/01/20 04:11 Potassium 3.4 mmol/L (3.6-5.0) L 01/01/20 04:11 Chloride 93 mmol/L (98-107) L 01/01/20 04:11 Carbon Dioxide 30 mmol/L (22-30) 01/01/20 04:11 Anion Gap 11 (5-19) 01/01/20 04:11 BUN 20 mg/dL (7-20) 01/01/20 04:11 Creatinine 0.56 mg/dL (0.52-1.25) 01/01/20 04:11 Est GFR ( Amer) > 60 (>60) 01/01/20 04:11 Est GFR (MDRD) Non-Af > 60 (>60) 01/01/20 04:11 Glucose 137 mg/dL (75-110) H 01/01/20 04:11 POC Glucose 231 mg/dL (70-110) H 01/02/20 08:35 Hemoglobin A1c % 6.4 % (4.7-6.0) H 01/01/20 04:11 Calcium 9.1 mg/dL (8.4-10.2) 01/01/20 04:11 Magnesium 2.1 mg/dL (1.6-2.3) 01/01/20 04:11 Total Bilirubin 0.7 mg/dL (0.2-1.3) 01/01/20 04:11 Direct Bilirubin 0.0 mg/dL (0.0-0.4) 01/01/20 04:11 Neonat Total Bilirubin Not Reportable 01/01/20 04:11 Neonat Direct Bilirubin Not Reportable 01/01/20 04:11 Neonat Indirect Bili Not Reportable 01/01/20 04:11 AST 44 U/L (17-59) 01/01/20 04:11 ALT 62 U/L (<50) H 01/01/20 04:11 Alkaline Phosphatase 56 U/L (38-126) 01/01/20 04:11 Creatine Kinase 89 U/L (55-170) 01/01/20 04:11 CK-MB (CK-2) 1.89 ng/mL (<4.55) 01/01/20 04:11 Troponin I 0.012 ng/mL 01/01/20 04:11 NT-Pro-B Natriuret Pep 1100 pg/mL (<125) H 01/01/20 04:11 Total Protein 6.4 g/dL (6.3-8.2) 01/01/20 04:11 Albumin 4.2 g/dL (3.5-5.0) 01/01/20 04:11 Triglycerides 81 mg/dL (<150) 01/01/20 04:11 Cholesterol 136.90 mg/dL (0-200) 01/01/20 04:11 LDL Cholesterol Direct 83 mg/dL (<100) 01/01/20 04:11 VLDL Cholesterol 16.0 mg/dL (10-31) 01/01/20 04:11 HDL Cholesterol 51 mg/dL (>40) 01/01/20 04:11 Urine Color YELLOW 12/31/19 12:30 Urine Appearance CLEAR 12/31/19 12:30 Urine pH 6.0 (5.0-9.0) 12/31/19 12:30 Ur Specific [place] 1.015 12/31/19 12:30 Urine Protein NEGATIVE mg/dL (NEGATIVE) 12/31/19 12:30 Urine Glucose (UA) NEGATIVE mg/dL (NEGATIVE) 12/31/19 12:30 Urine Ketones NEGATIVE mg/dL (NEGATIVE) 12/31/19 12:30 Urine Blood NEGATIVE (NEGATIVE) 12/31/19 12:30 Urine Nitrite NEGATIVE (NEGATIVE) 12/31/19 12:30 Urine Bilirubin NEGATIVE (NEGATIVE) 12/31/19 12:30 Urine Urobilinogen NEGATIVE mg/dL (<2.0) 12/31/19 12:30 Ur Leukocyte Esterase NEGATIVE (NEGATIVE) 12/31/19 12:30 Urine Mucus TRACE 12/31/19 12:30 Urine Ascorbic Acid NEGATIVE (NEGATIVE) 12/31/19 12:30 12/31/19 12/31/19 12/31/19 11:30 16:15 21:51 CK-MB (CK-2) 2.37 2.02 Troponin I 0.019 0.012 < 0.012 NT-Pro-B Natriuret Pep 1290 H 01/01/20 04:11 CK-MB (CK-2) 1.89 Troponin I 0.012 NT-Pro-B Natriuret Pep 1100 H Impressions: Chest X-Ray 12/31/19 10:58 IMPRESSION: Stable cardiomegaly. No acute findings. Chest/Abdomen CTA 01/01/20 07:00 IMPRESSION: No PE. No acute findings in the chest. Plan Plan of Treatment: Patient advised to be compliant with his medications and also advised to follow- up with Dr. Kelly in 5 to 7 days time. Patient agreed with the plan. Time Spent: Greater than 30 Minutes Stroke Is this a Stroke Patient?: No Acute Heart Failure - Is this a Heart Failure Patient?: No
== END 2020-01-02 12:45 | disposition home or self-care (01) | DRG 292 ==
LOC: ER 10:23 → EH 15:33 → 3W 17:20
PROVIDERS: ADMIT Internal Medicine; ATTEND Internal Medicine
DX: I11.0 Hypertensive heart disease with heart failure (principal); J44.1 Chronic obstructive pulmonary disease with (acute) exacerbation; Z79.01 Long term (current) use of anticoagulants; I50.32 Chronic diastolic (congestive) heart failure; E11.9 Type 2 diabetes mellitus without complications; E66.01 Morbid (severe) obesity due to excess calories; I48.0 Paroxysmal atrial fibrillation; Z66 Do not resuscitate; I25.10 Atherosclerotic heart disease of native coronary artery without angina pectoris; E78.5 Hyperlipidemia, unspecified; M19.90 Unspecified osteoarthritis, unspecified site; Z91.14 Patient's other noncompliance with medication regimen; Z95.5 Presence of coronary angioplasty implant and graft; Z87.891 Personal history of nicotine dependence; Z82.49 Family history of ischemic heart disease and other diseases of the circulatory system
CPT/HCPCS: 36415; 71046; 71275; 80053; 80061; 81001; 82550; 82553; 82962; 83036; 83735; 83880; 84484; 85025; 85610; 93005; 93010; 93306; 94640; 94660; 96374; 96375; 99285; J1940; J2930; J3490; J7620

== ENCOUNTER → 2020-06-15 | Outpatient (CLI) | payer BC ==
[2020-06-15 09:31] LABS: ABSOLUTE EOSINOPHILS # (AUTO) 0.2 10^3/uL (0.0-0.6); ABSOLUTE LYMPHOCYTES (AUTO) 1.1 10^3/uL (0.5-4.7); ABSOLUTE MONOCYTES (AUTO) 0.5 10^3/uL (0.1-1.4); BASOPHILS % (AUTO) 0.8 % (0-2); EOSINOPHILS % (AUTO) 4.1 % (0-6); HEMATOCRIT 42.7 % (37.9-51.0); HEMOGLOBIN 14.6 g/dL (13.5-17.0); LYMPHOCYTES % (AUTO) 18.9 % (13-45); MEAN CORPUSCULAR HEMOGLOBIN 30.4 pg (27.0-33.4); MEAN CORPUSCULAR HGB CONC 34.2 g/dL (32.0-36.0); MEAN CORPUSCULAR VOLUME 89 fl (80-97); MONOCYTES % (AUTO) 7.8 % (3-13); PLATELET COUNT 170 10^3/uL (150-450); RED BLOOD COUNT 4.81 10^6/uL (4.35-5.55); RED CELL DISTRIBUTION WIDTH 15.4 % (11.5-14.0); SEGMENTED NEUTROPHILS % (AUTO) 68.4 % (42-78); TOTAL CELLS COUNTED % (AUTO) 100 %; WHITE BLOOD COUNT 5.9 10^3/uL (4.0-10.5)
[2020-06-15 09:53] LABS: ALBUMIN 4.3 g/dL (3.5-5.0); ALKALINE PHOSPHATASE 92 U/L (38-126); ANION GAP 9 (5-19); ASPARTATE AMINO TRANSFERASE 32 U/L (17-59); BILIRUBIN,DIRECT 0.3 mg/dL (0.0-0.4); BILIRUBIN,TOTAL 0.6 mg/dL (0.2-1.3); BLOOD UREA NITROGEN 16 mg/dL (7-20); CALCIUM 9.5 mg/dL (8.4-10.2); CARBON DIOXIDE 29 mmol/L (22-30); CHLORIDE 100 mmol/L (98-107); CHOLESTEROL 135.24 mg/dL (0-200); GLUCOSE 102 mg/dL (75-110); POTASSIUM 4.7 mmol/L (3.6-5.0); TOTAL PROTEIN 6.7 g/dL (6.3-8.2); TRIGLYCERIDES 181 mg/dL (<150)
[2020-06-15 10:04] LABS: DIRECT LDL 77 mg/dL (<100)
[2020-06-15 10:28] LABS: VLDL CHOLESTEROL 36.2 mg/dL (10-31)
== END ==
LOC: OD 08:12
PROVIDERS: ATTEND Internal Medicine
DX: I48.91 Unspecified atrial fibrillation (principal); I10 Essential (primary) hypertension; R73.9 Hyperglycemia, unspecified
CPT/HCPCS: 36415; 80053; 80061; 83036; 84153; 84443; 85025